=== PATIENT | male | born 1950 | race Caucasian/White ===

== ENCOUNTER → 2016-09-30 | Outpatient (CLI) | payer BC, OTHER ==
[~2016-09-30] MED LIST: ASPCH81 PO; B-COCAP2 PO; LISI40TA PO; METO100T14 PO; MULT-618 PO; OMEP40CA PO; SIMV40TA2 PO
[2016-09-30 12:52] LABS: BASO % 0.4 %; BASO ABS # 0.02 K/uL (0-0.2); COMPLETE YES; EOS % 3.9 %; HEMATOCRIT 41.3 % (42-52); IG% 0.8 %; LYMPH % 24.8 %; LYMPH ABS # 1.32 K/uL (1.2-3.4); MEAN CELL VOLUME 94.7 fL (80-100); MEAN CORPUSCULAR HEMOGLOBIN 32.8 pg (25-34); MEAN CORPUSCULAR HGB CONC 34.6 g/dl (32-36); MEAN PLATELET VOLUME 9.7 fL (7.4-10.4); MONO % 11.5 %; NEUT % 58.6 %; PLATELET COUNT 184 K/uL (130-400); RED BLOOD COUNT 4.36 M/uL (4.7-6.1); WHITE BLOOD COUNT 5.32 K/uL (4.8-10.8)
[2016-09-30 13:11] LABS: BLOOD UREA NITROGEN 16 mg/dl (7-18); BUN/CREATININE RATIO 14.6 (10-20); CALCIUM 9.1 mg/dl (8.5-10.1); CARBON DIOXIDE 24 mmol/L (21-32); CHLORIDE 105 mmol/L (98-107); GLUCOSE 134 mg/dl (70-99); SODIUM 139 mmol/L (136-145)
== END | disposition home or self-care (01) ==
LOC: C.LABPBG 10:19
PROVIDERS: ATTEND Internal Medicine Geriatric Medicine
DX: I10 Essential (primary) hypertension (principal); E78.5 Hyperlipidemia, unspecified; I25.10 Atherosclerotic heart disease of native coronary artery without angina pectoris; D64.9 Anemia, unspecified

== ENCOUNTER → 2017-04-15 | Outpatient (CLI) | payer OTHER ==
[2017-04-15 12:18] LABS: BASO ABS # 0.05 K/uL (0-0.2); COMPLETE YES; EOS % 3.4 %; IG% 0.6 %; LYMPH % 20.6 %; LYMPH ABS # 1.03 K/uL (1.2-3.4); MEAN CELL VOLUME 96.1 fL (80-100); MEAN CORPUSCULAR HGB CONC 34.3 g/dl (32-36); MEAN PLATELET VOLUME 9.7 fL (7.4-10.4); NEUT % 58.4 %; PLATELET COUNT 176 K/uL (130-400); RED BLOOD COUNT 4.37 M/uL (4.7-6.1)
[2017-04-15 12:53] LABS: ESTIMATED AVERAGE GLUCOSE 105 mg/dl; HA1C FLAG Normal (Normal)
[2017-04-15 13:15] LABS: ALT/SGPT 47 U/L (12-78); AST/SGOT 46 U/L (15-37); BLOOD UREA NITROGEN 11 mg/dl (7-18); BUN/CREATININE RATIO 10.7 (10-20); CALCIUM 8.9 mg/dl (8.5-10.1); CARBON DIOXIDE 25 mmol/L (21-32); CHLORIDE 105 mmol/L (98-107); CREATININE 1.01 mg/dl (0.60-1.40); GLUCOSE 128 mg/dl (70-99); POTASSIUM 4.6 mmol/L (3.5-5.1); SODIUM 137 mmol/L (136-145)
[2017-04-15 13:26] LABS: ALB/GLOB RATIO 0.9 (0.9-2); ALKALINE PHOSPHATASE 91 U/L (45-117); CHOLESTEROL 168 mg/dl (0-200); CHOLESTEROL/HDL RATIO 2.4; HDL CHOLESTEROL 71 mg/dl; LDL CHOLESTEROL CALCULATED 73 mg/dl; TRIGLYCERIDES 122 mg/dl (0-150); VERY LOW DENSITY LIPOPROT CALC 24 mg/dl
--- NOTE | 2017-04-23 12:19 | CODING QUERY MEDICAL NECESSITY ---
SUPPORTING DIAGNOSIS NEEDED A supporting diagnosis is required for the test/procedure performed on this patient in order for us to be reimbursed by the patient's insurance. Please provide a supporting diagnosis for the following test/procedure listed below next to the test name along with your signature. *If there is no additional diagnosis for this patient that would support the following test/procedure please document that below next to the test/procedure. Test(s)/Procedure(s) that require a supporting diagnosis: * PSA DIAGNOSIS: Provider Signature: Date: Thank you Eva Gonzales [employer] Once completed, please kindly fax back to [phone] For questions please call [phone]
== END | disposition home or self-care (01) ==
LOC: C.LABPBG 09:02
PROVIDERS: ATTEND Internal Medicine Geriatric Medicine
DX: Z00.00 Encounter for general adult medical examination without abnormal findings (principal); I10 Essential (primary) hypertension; R73.9 Hyperglycemia, unspecified; E78.5 Hyperlipidemia, unspecified; K76.0 Fatty (change of) liver, not elsewhere classified; D64.9 Anemia, unspecified

== ENCOUNTER → 2017-05-26 | Outpatient (CLI) | payer OTHER ==
[2017-05-26 13:17] LABS: BLOOD UREA NITROGEN 12 mg/dl (7-18); BUN/CREATININE RATIO 12.9 (10-20); CALCIUM 8.9 mg/dl (8.5-10.1); CARBON DIOXIDE 28 mmol/L (21-32); CHLORIDE 100 mmol/L (98-107); CREATININE 0.96 mg/dl (0.60-1.40); GLUCOSE 115 mg/dl (70-99); POTASSIUM 4.1 mmol/L (3.5-5.1); SODIUM 133 mmol/L (136-145)
[2017-05-26 13:22] LABS: FREE PSA 0.76 ng/ml
== END | disposition home or self-care (01) ==
LOC: C.LABPBG 08:30
PROVIDERS: ATTEND Internal Medicine Geriatric Medicine
DX: R97.20 Elevated prostate specific antigen [PSA] (principal); I10 Essential (primary) hypertension

== ENCOUNTER → 2017-09-14 | Day surgery (SDC) | payer OTHER ==
[2017-08-31 08:31] VITALS: Ht 182.9 cm; Wt 86.4 kg
[~2017-09-14] VITALS: Ht 182.9 cm; Wt 86.4 kg
[~2017-09-14] MED LIST changes: +AMLO-110 PO; +ASCA500 PO; -ASPCH81 PO; +ASPI81TA28 PO; +ATOR-24 PO; +B-CO1TAB53 PO; -B-COCAP2 PO; +CYAN10005 PO; +EpHEDrine SULFATE 50MG/5ML SYR ONE; +LIDOCAINE HCL 2% 2 ML VIAL (20MG/ML) ONE; -OMEP40CA PO; +OMEP40CA41 PO; +PRED20TA PO; +PROPOFOL IV EMULSION 10 MG/ML 20 ML VIAL IV ONE; +PSYL48.59 PO; -SIMV40TA2 PO; +SODIUM CHLORIDE 0.9% 500ML 500 ML IV ONE
--- NOTE | 2017-09-14 11:40 | Endo History and Physical ---
History & Physical Date of Service: Sep 14, 2017. Chief Complaint: History of colon polyps Referring Physician: Dr. Mendez History of Present Illness 66 yo CM who presents for colonoscopy secondary to history of colon polyps. Past Medical History Reflux, High Cholesterol, CABG, Hypertension Past Surgical History Hx Cardiac Surgery: Yes (AORTIC VALVE REPLACEMENT) Hx Internal Defibrillator: No Hx Pacemaker: No Hx Abdominal Surgery: No Hx of Implantable Prosthesis: No Hx Post-Op Nausea and Vomiting: No Hx Cancer Surgery: No Hx Thoracic Surgery: No Hx Orthopedic: Yes (RT KNEE SURGERY) Hx Urinary Tract Surgery: No Family History None Social History Smoking Status: Never Smoker Hx Substance Use: No Hx Alcohol Use: Yes (A COUPLE BEERS/DAY) Allergies Coded Allergies: No Known Allergies (Unverified , 09/14/17) Current Medications Reported Home Medications Medications Dose Route/Sig Max Daily Dose Days Date Category Prednisone 20 Mg Tab 1 Tab PO DAILY 5 09/14/17 Reported Super B-Complex (B-Complex W/Biotin & Folic Aci) 1 Tab Tab 1 Tab PO DAILY 08/31/17 Reported Vitamin C (Ascorbic Acid) 500 Mg Tab 1 Tab PO DAILY 08/31/17 Reported Vitamin B-12 (Cyanocobalamin) 1,000 Mcg Tab 1,000 Mcg PO DAILY 08/31/17 Reported Metamucil (Psyllium) 48.57 % Pow 1 Dose PO DAILY 08/31/17 Reported Prilosec (Omeprazole) 40 Mg Cap 40 Mg PO QAM 08/31/17 Reported Lipitor (Atorvastatin Calcium) 40 Mg Tab 40 Mg PO QAM 08/31/17 Reported Aspirin Ec (Aspirin) 81 Mg Tab 81 Mg PO QAM 08/31/17 Reported Norvasc (Amlodipine Besylate) 5 Mg Tab 5 Mg PO QAM 08/31/17 Reported Centrum Silver Ultra Mens (Multiple Vitamins W/ Minerals) 1 Tab Tab 1 Tab PO QAM 06/29/14 Reported Lopressor (Metoprolol Tartrate) 100 Mg Tab 100 Mg PO BID 06/27/14 Reported Prinivil (Lisinopril) 40 Mg Tab 40 Mg PO QAM 06/27/14 Reported Vital Signs Weight (Kilograms): 86.36 Height (Feet): 6 Height (Inches): 0 Date Time Temp Pulse Resp B/P (MAP) Pulse Ox O2 Delivery O2 Flow Rate FiO2 09/14/17 11:10 36.7 95 16 116/69 (85) 96 Room Air Physical Exam General Appearance: WD/WN, no apparent distress Respiratory/Chest: Auscultation: breath sounds normal Cardiovascular: Heart Auscultation: RRR Abdomen: Bowel Sounds: normal Inspection & Palpation: soft, non-distended, no tenderness, guarding & rebound Assessment and Plan Assessment: 66 yo CM who presents for colonoscopy secondary to history of colon polyps. Plan: Proceed with colonoscopy.
--- NOTE | 2017-09-14 12:12 | Discharge Instructions ---
Endoscopy Patient Instructions Date / Procedure(s) Performed Sep 14, 2017. Colonoscopy Allergy Information Coded Allergies: No Known Allergies (Unverified , 09/14/17) Discharge Date / Findings Sep 14, 2017. Colon polyps Internal hemorrhoids Medication Instructions Stopped Medication(s): BABY ASPIRIN METAMUCIL OK to resume all medications today as prescribed Reported Home Medications Medications Dose Route/Sig Max Daily Dose Days Date Category Prednisone 20 Mg Tab 1 Tab PO DAILY 5 09/14/17 Reported Super B-Complex (B-Complex W/Biotin & Folic Aci) 1 Tab Tab 1 Tab PO DAILY 08/31/17 Reported Vitamin C (Ascorbic Acid) 500 Mg Tab 1 Tab PO DAILY 08/31/17 Reported Vitamin B-12 (Cyanocobalamin) 1,000 Mcg Tab 1,000 Mcg PO DAILY 08/31/17 Reported Metamucil (Psyllium) 48.57 % Pow 1 Dose PO DAILY 08/31/17 Reported Prilosec (Omeprazole) 40 Mg Cap 40 Mg PO QAM 08/31/17 Reported Lipitor (Atorvastatin Calcium) 40 Mg Tab 40 Mg PO QAM 08/31/17 Reported Aspirin Ec (Aspirin) 81 Mg Tab 81 Mg PO QAM 08/31/17 Reported Norvasc (Amlodipine Besylate) 5 Mg Tab 5 Mg PO QAM 08/31/17 Reported Centrum Silver Ultra Mens (Multiple Vitamins W/ Minerals) 1 Tab Tab 1 Tab PO QAM 06/29/14 Reported Lopressor (Metoprolol Tartrate) 100 Mg Tab 100 Mg PO BID 06/27/14 Reported Prinivil (Lisinopril) 40 Mg Tab 40 Mg PO QAM 06/27/14 Reported Provider Instructions Activity Restrictions - No exercising or heavy lifting for 24 hours. - Do not drink alcohol the day of the procedure. - Do not drive a car or operate machinery until the day after the procedure. - Do not make any important decisions or sign important papers in 24 hours after the procedure. Following Day: - Return to full activity which may include returning to work/school. Diet Start your diet with liquids and light foods (jello, soup, juice, toast). Then eat your usual diet if not nauseated. Treatment For Common After Affects For mild abdominal pain, bloating, or excessive gas: - Rest - Eat lightly - Lie on right side Follow-Up Information Follow-up with Dr. Mendez as scheduled Anesthesia Information What You Should Know You have had a procedure that required some medicine to reduce anxiety and discomfort. This treatment is called moderate sedation. After receiving the treatment, you may be sleepy, but you will be able to breathe on your own. The effects of the treatment may last for several hours. Follow these instructions along with Activity/Diet recommendations noted above: * Do NOT do anything where dizziness or clumsiness would be dangerous. * Rest quietly at home today, then you can be up and about tomorrow. * Have a responsible person stay with you the rest of today. * You may have had an I.V. today. If so, you may take the dressing off later today. Recommendations Call your doctor if: * Trouble breathing * Continuous vomiting for more than 24 hours * Temperature above 101 degrees * Severe abdominal pain or bloating * Pain not relieved by pain medicine ordered * There is increased drainage or redness from any incision * A large amount of rectal bleeding greater than 2-3 tablespoons. (If you had a polyp/s removed or have hemorrhoids, a small amount of blood - from the rectum is to be expected.) * You have any unanswered questions or concerns. IN THE EVENT OF A SERIOUS EMERGENCY, GO TO THE NEAREST EMERGENCY ROOM Your discharge instructions were prepared by provider Mike Goldman. Patient Instructions Signature Page Eusebio Montemayor Patient (or Guardian) Signature/Date: I have read and understand the instructions given to me by my caregivers. Caregiver/RN/Doctor Signature/Date: The above-named patient and/or guardian has received patient instructions on this date. + Original Patient Signature Page (only) stays with chart. Please make copy for patient.
--- NOTE | 2017-09-14 12:12 | GI REPORT ---
Procedure Date: 09/14/2017 11:13 AM Procedure: Colonoscopy Indications: High risk colon cancer surveillance: Personal history of colonic polyps Medicines: Monitored Anesthesia Care Complications: No immediate complications. Estimated Blood Loss: Estimated blood loss: none. Procedure: Pre-Anesthesia Assessment: - Prior to the procedure, a History and Physical was performed, and patient medications and allergies were reviewed. The patient's tolerance of previous anesthesia was also reviewed. The risks and benefits of the procedure and the sedation options and risks were discussed with the patient. All questions were answered, and informed consent was obtained. Prior Anticoagulants: The patient has taken aspirin, last dose was 1 day prior to procedure. ASA Grade Assessment: III - A patient with severe systemic disease. After reviewing the risks and benefits, the patient was deemed in satisfactory condition to undergo the procedure. After I obtained informed consent, the scope was passed under direct vision. Throughout the procedure, the patient's blood pressure, pulse, and oxygen saturations were monitored continuously. The Scope was introduced through the anus and advanced to the terminal ileum. The colonoscopy was performed without difficulty. The patient tolerated the procedure well. The quality of the bowel preparation was good. The terminal ileum, ileocecal valve, appendiceal orifice, and rectum were photographed. Findings: The perianal and digital rectal examinations were normal. Five sessile polyps were found in the sigmoid colon, transverse colon and cecum. The polyps were 4 to 8 mm in size. These polyps were removed with a hot snare. Resection and retrieval were complete. Non-bleeding internal hemorrhoids were found during retroflexion. The hemorrhoids were small. Impression: - Five 4 to 8 mm polyps in the sigmoid colon, in the transverse colon and in the cecum, removed with a hot snare. Resected and retrieved. - Non-bleeding internal hemorrhoids. Recommendation: - Resume previous diet. - Continue present medications. - Repeat colonoscopy for surveillance based on pathology results. - Return to primary care physician as previously scheduled. Mike Goldman, DO 09/14/2017 12:12:00 PM This report has been signed electronically. Note Initiated On: 09/14/2017 11:13 AM I attest to the content of the Intraoperative Record and orders documented therein, exceptions below
--- NOTE | 2017-09-14 12:20 | Anesthesiology Progress Note ---
Anesthesia Post Op Note Date & Time Sep 14, 2017 at 12:19 Vital Signs Pain Intensity: 5 Vital Signs Past 12 Hours Date Time Temp Pulse Resp B/P (MAP) Pulse Ox O2 Delivery O2 Flow Rate FiO2 09/14/17 11:10 36.7 95 16 116/69 (85) 96 Room Air Notes Mental Status: alert / awake / arousable, participated in evaluation Pt Amnestic to Procedure: Yes Nausea / Vomiting: adequately controlled Pain: adequately controlled Airway Patency, RR, SpO2: stable & adequate BP & HR: stable & adequate Hydration State: stable & adequate Anesthetic Complications: no major complications apparent
[2017-09-14 12:46] VITALS: BP 107/61; PULSE 62; O2SAT 96
== END | disposition home or self-care (01) ==
LOC: C.GI 10:08
PROVIDERS: ATTEND Internal Medicine
DX: Z12.11 Encounter for screening for malignant neoplasm of colon (principal); D12.3 Benign neoplasm of transverse colon; D12.5 Benign neoplasm of sigmoid colon; D12.0 Benign neoplasm of cecum; Z86.010 Personal history of colon polyps; K64.8 Other hemorrhoids; E78.5 Hyperlipidemia, unspecified; I25.10 Atherosclerotic heart disease of native coronary artery without angina pectoris; I10 Essential (primary) hypertension; K21.9 Gastro-esophageal reflux disease without esophagitis; E78.00 Pure hypercholesterolemia, unspecified; Z95.1 Presence of aortocoronary bypass graft; Z95.2 Presence of prosthetic heart valve; Z79.82 Long term (current) use of aspirin; Z79.52 Long term (current) use of systemic steroids

== ENCOUNTER → 2017-11-03 | Outpatient (CLI) | payer OTHER ==
[~2017-11-03] MED LIST changes: -EpHEDrine SULFATE 50MG/5ML SYR ONE; -LIDOCAINE HCL 2% 2 ML VIAL (20MG/ML) ONE; -PROPOFOL IV EMULSION 10 MG/ML 20 ML VIAL IV ONE; -SODIUM CHLORIDE 0.9% 500ML 500 ML IV ONE
[2017-11-03 14:38] LABS: ALBUMIN 3.8 gm/dl (3.4-5.0); ALT/SGPT 38 U/L (12-78); AST/SGOT 34 U/L (15-37); BLOOD UREA NITROGEN 12 mg/dl (7-18); CARBON DIOXIDE 24 mmol/L (21-32); CREATININE 0.99 mg/dl (0.60-1.40); GLUCOSE 120 mg/dl (70-99); POTASSIUM 4.3 mmol/L (3.5-5.1); SODIUM 137 mmol/L (136-145); TOTAL PROTEIN 7.5 gm/dl (6.4-8.2)
[2017-11-03 14:39] LABS: ALKALINE PHOSPHATASE 94 U/L (45-117); CHOLESTEROL 139 mg/dl (0-200); LDL CHOLESTEROL CALCULATED 50 mg/dl
== END | disposition home or self-care (01) ==
LOC: C.LABPBG 08:31
PROVIDERS: ATTEND Surgery
DX: I10 Essential (primary) hypertension (principal); K76.0 Fatty (change of) liver, not elsewhere classified; E78.5 Hyperlipidemia, unspecified

== ENCOUNTER 2024-05-02 05:57 | Inpatient (IN) ==
--- OUTSIDE RECORDS SUMMARY | 2024-05-02 06:02 | External Medical Summary | Continuity of Care Document ---
Author Name Unknown Organization [facility] [address] [place] [phone] Encounter [facility] FINNBR [id number] Date(s): 04/27/24 - 04/27/24 [facility] [place] [address] [facility] [place] [address], [facility] [address], [address] [place] [address] [phone] Encounter Diagnosis Posterior tibial tendon dysfunction, bilateral(Discharge Diagnosis) - 04/27/24 Arthralgia of left hindfoot(Discharge Diagnosis) - 04/27/24 Arthralgia of right hindfoot(Discharge Diagnosis) - 04/27/24 Callus of foot(Discharge Diagnosis) - 04/27/24 Discharge Disposition: Home or Self Care Attending Physician: MD Grove Sarah Allergies, Adverse Reactions, Alerts No Known Allergies Assessment and Plan Extracted from: Title:Orthopaedics Office Visit Note Author:Saran shah MD, Sarah Date:04/27/24 1.Foot pain, left 1.Foot pain, right 3.Posterior tibial tendon dysfunction, bilateral 4.Arthralgia of left hindfoot 5.Arthralgia of right hindfoot 6.Callus of foot Carmine a 73-year-old gentleman with 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 At this time he does have significant deformitybut he has minimal pain through his hindfoot. His main area of pain is over hiscalluson theleft side more so than the right. I explained to him today atthat since his orthoticspreviously gave him good reliefbefore he started to have issues with calluses I feel that it may be worth having new orthotics madeto see if these can offload that area.He is not interested in surgery at this timewhich I feelis reasonable as he is having minimal pain through his hindfoot with the exception of the callus. I did debride the callus with a 15 blade todayhere in the office. I provided him with an order for custom orthotics. I recommend taking [id number] medications and using topical treatment such as Voltaren or Bengay. I feel that the orthotics are medically necessary to offload and accommodate his deformity. He would like to see me back in 6 months to check his progress. If at that time he is not improvingwe can consider surgical intervention. All of his questions were answered. Medications amLODIPine 5 mg oral tablet Start: 04/27/24 9:20:00 AM EST Start Date: 04/27/24 Status: Ordered ammonium lactate 12% topical cream Start: 04/27/24 9:20:00 AM EST, 1 appl, topical, qAM Start Date: 04/27/24 Status: Ordered atorvastatin 80 mg oral tablet Start: 04/27/24 9:20:00 AM EST, 1 tab, PO, Daily Start Date: 04/27/24 Status: Ordered diclofenac 1% topical gel Start: 04/27/24 9:21:00 AM EST, 1 appl, topical, qid Start Date: 04/27/24 Status: Ordered ferrous sulfate 325 mg (65 mg elemental iron) oral tablet Start: 04/27/24 9:20:00 AM EST, 1 tab, PO, Daily Start Date: 04/27/24 Status: Ordered lisinopril 40 mg oral tablet Start: 04/27/24 9:20:00 AM EST, 1 tab, PO, Daily Start Date: 04/27/24 Status: Ordered Metoprolol Tartrate 50 mg oral tablet TAKE 1 TABLET BY MOUTH TWICE A DAY Start Date: 04/27/24 Status: Ordered omeprazole 40 mg oral delayed release capsule Start: 04/27/24 9:21:00 AM EST, 1 cap, PO, Daily Start Date: 04/27/24 Status: Ordered sildenafil 20 mg oral tablet Start: 04/27/24 9:21:00 AM EST, 1 tab, PO, tid Start Date: 04/27/24 Status: Ordered Mental Status 04/27/24 Barriers to Learning one year Other: Mandatory Health Literacy Documentation Yes Health Literacy Communication Barriers N ever Primary Language Greenlandic Problem List Condition Confirmation Course Effective Dates Status Health atus Informant Bilateral ankle pain Confirmed Active Diagnosis Diagnosis Type Effective Dates Health Status Clinical Service Informant Foot pain, right 04/27/24 Non-Specified Foot pain, left 04/27/24 Non-Specified Posterior tibial tendon dysfunction, bilateral Discharge Diagnosis 04/27/24 Arthralgia of left hindfoot Discharge Diagnosis 04/27/24 Callus of foot Discharge Diagnosis 04/27/24 Arthralgia of right hindfoot Discharge Diagnosis 04/27/24 Results Radiology Reports * Exam Date Time Procedure Performing Provider Status 04/27/24 10:02 AM XR Foot Complete 3+ Views Left Andres Mike; Final Notes: (XR Foot Complete 3+ Views Left) Reason For Exam: left foot XR Foot Complete 3+ Views Left EXAMINATION: XR Foot Complete 3+ Views Right, XR Foot Complete 3+ Views Left CLINICAL HISTORY: M79.671: Pain in right foot; M79.671: Pain in right foot; right foot COMPARISON: None FINDINGS: AP, oblique and lateral views of the right foot. Radiographs show moderate hallux valgus with lateralization of the hallux sesamoids, forefoot adduction with talonavicular uncoverage, collapse of thefoot arch with talar fault, moderate osteoarthritis at the calcaneocuboid joint and the first MTP joint, and mild degenerative changes in the midfoot. There is diffuse osseous demineralization. Thereis a healed fracture of the proximal phalanx neck of the right second toe. There is hammertoe deformity noted at the second through fifth toes. AP, oblique and lateral views of the left foot. Radiographs show moderate hallux valgus with lateralization of the hallux sesamoids, forefoot adduction with talonavicular uncoverage, collapse of the foot arch with talar fault and moderate osteoarthritis at the first MTP joint. There is diffuse osseous demineralization. There is hammertoe deformity noted at the second through fifth toes. IMPRESSION: 1. Moderate hallux valgus with lateralization of the hallux sesamoid and moderate osteoarthritis inthe first MTP joint, bilateral. 2. 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 3. Moderate osteoarthritis at the calcaneocuboid joint and mild degenerative changes in the midfoot, right. 4. Healed fracture in the proximal phalanx neck the right second toe. Workstation ID: [id number] Final Dictated by:MD Youssef Joong Mo Dictated DT/TM:04/27/2024 11:26 Signed by:MD Youssef Joong Mo Signed (Electronic Signature):04/27/2024 11:25 * Exam Date Time Procedure Performing Provider Status 04/27/24 10:02 AM XR Foot Complete 3+ Views Right RashidAndres; Final Notes: (XR Foot Complete 3+ Views Right) Reason For Exam: right foot XR Foot Complete 3+ Views Right EXAMINATION: XR Foot Complete 3+ Views Right, XR Foot Complete 3+ Views Left CLINICAL HISTORY: M79.671: Pain in right foot; M79.671: Pain in right foot; right foot COMPARISON: None FINDINGS: AP, oblique and lateral views of the right foot. Radiographs show moderate hallux valgus with lateralization of the hallux sesamoids, forefoot adduction with talonavicular uncoverage, collapse of thefoot arch with talar fault, moderate osteoarthritis at the calcaneocuboid joint and the first MTP joint, and mild degenerative changes in the midfoot. There is diffuse osseous demineralization. Thereis a healed fracture of the proximal phalanx neck of the right second toe. There is hammertoe deformity noted at the second through fifth toes. AP, oblique and lateral views of the left foot. Radiographs show moderate hallux valgus with lateralization of the hallux sesamoids, forefoot adduction with talonavicular uncoverage, collapse of the foot arch with talar fault and moderate osteoarthritis at the first MTP joint. There is diffuse osseous demineralization. There is hammertoe deformity noted at the second through fifth toes. IMPRESSION: 1. Moderate hallux valgus with lateralization of the hallux sesamoid and moderate osteoarthritis inthe first MTP joint, bilateral. 2. 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 3. Moderate osteoarthritis at the calcaneocuboid joint and mild degenerative changes in the midfoot, right. 4. Healed fracture in the proximal phalanx neck the right second toe. Workstation ID: [id number] Final Dictated by:MD Youssef Joong Mo Dictated DT/TM:04/27/2024 11:26 Signed by:MD Youssef Joong Mo Signed (Electronic Signature):04/27/2024 11:25 Social History Social History Type Response Smoking Status Never smoked cigaret minh Sex Male Sex Representation Male (finding) Ortho Outpt Note * MD Perfecto, Shey: PERFORM Event Display: Ortho Outpt Note Authored Date: Chief Complaint bilateral ankle History of Present Illness Gene presents for evaluation of bilateral feet.Left side is worse than right. He states that these became symptomatica couple years ago. He states that there was not an injury. He states he was seen by an outsidepodiatrist who prescribed him custom orthotics. He states these helpedwith his pain however he developed calluses in relation to theseafter about a year so he stopped using them. He states he recently saw a provider at [facility] who recommendedwhat sounds like a hindfoot fusion. He is not interested in surgical intervention and thereforeis requesting a second opinion. He states he previouslycompleted physical therapy and he felt this did help with his gaitand strength. He denies prior surgeryhe does not smoke. He denieshistory of blood clots orblood thinning medication. He is not diabetic. 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 He states outside providerdid try to order him a "custom boot" which sounds like an [employer] brace however his insurance denied this. Review of Systems All other review of systems completed and are negative except as described in the HPI above. Physical Exam General: alert and oriented x 3, no acute distress Psych: Normal mood and affect Skin: Normal without any rashes Pulmonary: unlabored respirations on room air CV: extremity pulses with regular rate, no pitting edema of the lower extremities Alignment: On standing exam,approximately 20 degrees of hindfoot valgus bilaterally. Hallux valgus deformity bilaterally. forefoot abduction bilaterally. Symmetriccollapsedarches bilaterally. Prominent callus overmedial longitudinal archand region of talar head bilaterally. unableto do tandem heel rise. Right Lower Extremity:Skin intact without erythema or wounds. 2+ dorsalis pedis pulse. Toes arewarm, and well-perfused. Sensation is intact to light touch in the DP, SP, sural, saphenous, and tibial nerve distributions. 5/5 strength in ankle dorsiflexion, plantarflexion,3/5 strength with inversion and eversion.Ankle range of motion is 5 degrees of dorsiflexion to 30 degrees of plantarflexionwithkneeflexed, dorsiflexion toneutral with thekneeextended.Subtalar range of motion 0degrees eversion, 5 degrees inversion. non TTP is sibfibularregion.Nontender palpation over posterior tibial tendon. Nontender palpation in sinus Tarsior calcaneocuboid joint. Prominent callus overplantar medial talar head. Tender palpation over this callus. Minimal motion appreciated through the hindfoot and that I am able to correct deformity howeverno pain withattempted motion through the hindfoot. No pain with motion through midfoot or forefoot. Able to correct hallux valgus deformity. Unable to actively invert past midline. Nontender palpation alongtibialis anterior, Achilles, peroneals, posterior tibial tendon. Left Lower Extremity:Skin intact without erythema or wounds. 2+ dorsalis pedis pulse. Toes are warm, and well-perfused. Sensation is intact to light touch in the DP, SP, sural, saphenous, and tibial nerve distributions. 5/5 strength in ankle dorsiflexion, plantarflexion,3/5 strength with inversion and eversion.Ankle range of motion is 5 degrees of dorsiflexion to 30 degrees of plantarflexionwithkneeflexed, dorsiflexion toneutral with thekneeextended.Subtalar range of motion 0degrees eversion, 5 degrees inversion. non TTP is sibfibularregion.Nontender palpation over posterior tibial tendon. Nontender palpation in sinus Tarsior calcaneocuboid joint. Prominent callus overplantar medial talar head. Tender palpation over this callus. Minimal motionappreciated through the hindfoot and that I am able to correct deformity howeverno pain withattempted motion through the hindfoot. No pain with motion through midfoot or forefoot. Able to correct hallux valgus deformity. Unable to actively invert past midline. Nontender palpation along tibialis anterior, Achilles, peroneals, posterior tibial tendon. Diagnostic Results Weightbearing views of bilateral feet were obtained and reviewed today. No limitations. No comparisons. These demonstrate no acute fractures or dislocations bilaterally. No evidence of osteomyelitis or infection. Hallux valgus deformity bilaterally. There is bilateral progressive collapsing foot deformity with plantarflexion of the talus and Meary's angle directed plantarly. Evidence of forefoot abduction bilaterally with talar head uncoverage. Degenerative changes appreciated at calcaneocuboid joint. 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 At this time he does have significant deformitybut he has minimal pain through hishindfoot. His main area of pain is over hiscalluson theleft side more so than the right. I explained to him today atthat since his orthoticspreviously gave him good reliefbefore he started to have issues with calluses I feel that it may be worth having new orthotics madeto see if these can offload that area.He is not interested in surgery at this timewhich I feelis reasonable as he is having minimal pain through his hindfoot with the exception of the callus. I did debride the callus with a 15 blade todayhere in the office. I provided him with an order for custom orthotics. I recommend taking [id number] medications and using topical treatment such as Voltaren or Bengay. I feel that the orthotics are medically necessary to offload and accommodate his deformity. He would like to see me back in 6 months to check his progress. If at that time he is not improvingwe can consider surgical intervention. All of his questions were answered. Problem List/Past Medical History Ongoing Bilateral ankle pain Medications amLODIPine(amLODIPine 5 mg oral tablet) ammonium lactate topical(ammonium lactate 12% topical cream), 1 appl, topical, qAM atorvastatin(atorvastatin 80 mg oral tablet), 80 mg= 1 tab, PO, Daily diclofenac topical(diclofenac 1% topical gel), 1 appl, topical, qid ferrous sulfate(ferrous sulfate 325 mg (65 mg elemental iron) oral tablet), 325 mg= 1 tab, PO, Daily lisinopril(lisinopril 40 mg oral tablet), 40 mg= 1 tab, PO, Daily metoprolol(Metoprolol Tartrate 50 mg oral tablet) omeprazole(omeprazole 40 mg oral delayed release capsule), 40 mg= 1 cap, PO, Daily sildenafil(sildenafil 20 mg oral tablet), 20 mg= 1 tab, PO, tid Allergies NKA Social History Smoking Status Never smoked cigarettes Recommendations Health Maintenance Pending(in the next year) OverDue Adult Influenza Vaccine due12/20/23and every 1year Due Medicare Annual Wellness Visit due04/27/24and every 1year Satisfied(in the past 1 year) There are no satisfied recommendations within the defined date range Electronic Signature on File Electronically Reviewed/Signed by: Shey Grove MD Author Signature Dt/Tm:04/27/2024 10:49 AM Division of Orthopaedics [place] Patient Care team information Care Team Related Persons Name: ARLEN GLASS
[2024-05-02 06:37] LABS: Basophils # (auto) 0.03 K/uL (0.00-0.20); Basophils % (auto) 0.8 %; Eosinophils # (auto) 0.03 K/uL (0.00-0.50); Eosinophils % (auto) 0.8 %; Hematocrit (blood only) 27.2 % (42.0-52.0); Hemoglobin 9.7 g/dl (14.0-18.0); Immature Granulocytes # (auto) 0.03 K/uL (0.01-0.20); Immature Granulocytes % (auto) 0.8 %; Lymphocytes # (auto) 0.61 K/uL (1.20-3.40); Lymphocytes % (auto) 16.9 %; Mean Corpuscular Hemoglobin 31.2 pg (25.0-34.0); Mean Corpuscular Hgb Conc 35.7 g/dL (32.0-36.0); Mean Corpuscular Volume 87.5 fL (80.0-100.0); Mean Platelet Volume 9.4 fL (9.4-12.4); Monocytes % (auto) 16.6 %; Neutrophils # (auto) 2.31 K/uL (1.40-6.50); Neutrophils % (auto) 64.1 %; Platelet Count 131 K/uL (130-400); RDW Coefficient of Variation 12.3 % (11.5-14.5); RDW Standard Deviation 39.7 fL (36.4-46.3); Red Blood Count 3.11 M/uL (4.70-6.10); White Blood Count 3.61 K/ul (4.8-10.8)
--- NOTE | 2024-05-02 07:20 | Emergency Department Note ---
Impression & Plan Acute CHF, Long QT syndrome, Hyponatremia, Edema, Acute and chronic respiratory failure with hypoxia ED Provider Note NAME: CHRISTIAN GLASS AGE: 73 SEX: M : 1950 ARRIVES VIA: Walk-In INFORMANT: Patient, ED PROVIDER(S): Shonda Ortega MD CHIEF COMPLAINT: Shortness of breath, wheezing HPI: This is a 73-year-old male presented for shortness of breath, wheezing. Patient notes that he began having symptoms that worsened last , 5 days ago. He notes that since then he has had some shortness of breath, wheezing in his chest. His bilateral lower extremities are swollen. Usually his left lower extremity swollen only. He also notes no smoking history. No fevers, chills, sore throat or congestion is noted. ROS: See above HPI for pertinent positives & negatives. A total of 10 systems reviewed and were otherwise negative. PAST MEDICAL HISTORY: See Below PAST SURGICAL HISTORY: See Below FAMILY HISTORY: See Below SOCIAL HISTORY: See Below HOME MEDICATIONS: See Below ALLERGIES: See Below VITALS: See Below PHYSICAL EXAMINATION: General: resting comfortably in no acute distress Head: Normocephalic and atraumatic Eyes: Normal inspection, extraocular muscles intact Ear, nose, throat: Normal external exam Neck: Normal range of motion Respiratory: Audible wheezes, diminished at the bases Cardiovascular: Regular rate/rhythm, no murmur GI: soft, nontender, no guarding or rebound Extremities: nontender, moves all extremities Neuro: The patient awake and alert, appropriately conversive, no focal deficits, symmetric faces Skin: Warm, dry, and intact MEDICAL DECISION MAKING: This is a 73-year-old male presenting for shortness of breath/wheezing. Consider CHF, PE, ACS, pneumonia, pleural effusion -Chest Xray independently interpreted by me showing no possible focal opacity/pleural effusion in the left lower lobe, no pneumothorax is noted -Anemia of 9.7 is noted otherwise slight leukopenia -There is noncritical value hyponatremia to 116 and hypokalemic 87. -BNP elevated at 1212. -With chest pain shortness of breath, will pursue CTA pulmonary embolism protocol to help elucidate underlying pathology versus PE. -CT reveals no PE, does show cardiomegaly with pulmonary edema/moderate bilateral pleural effusions with cirrhotic liver, splenomegaly. -With patient's current hyponatremia, elevated BNP, pulmonary edema/pleural effusion, patient required mission. He is currently hypoxic requiring nasal cannula. -Upper respiratory panel clear and negative -Discussed with Dr. Ruelas for admission. Differential diagnosis: CHF, PE, ACS, pneumonia, pleural effusion ER treatment provided: See below Independent History obtained from: Diagnostics interpreted by me: ECG: ECG independently interpreted by me with normal sinus rhythm, rate of 71, normal axis, normal NM, incomplete right branch block], mildly prolonged QT, no ST segment elevations consistent with STEMI criteria Cardiac Monitoring: An order was placed for continuous cardiac monitoring. The monitor shows a rate of 72 with sinus rhythm. Laboratory studies: As stated above and show below. Imaging studies: See below. Past Med/Surg History Problem List (Updated 05/02/24 @ 14:06 by Shonda Ortega MD) Liver cirrhosis, alcoholic Acute and chronic respiratory failure with hypoxia (Acute) Hypomagnesemia Acute CHF (Acute) Iron deficiency anemia Dyslipidemia (Chronic) Elevated PSA (Acute) Erectile dysfunction (Acute) Hyperglycemia Smokeless tobacco use (Chronic) Anemia (Chronic) Hyponatremia (Chronic) Edema (Acute) Encounter for pre-operative examination Toribio esophagus Dyspnea on exertion Low serum parathyroid hormone (PTH) Dysphagia HTN (hypertension) (Chronic) Hyperlipidemia (Chronic) CAD (coronary artery disease) (Chronic) Vitamin D deficiency (Chronic) Schatzki's ring (Chronic) Long QT syndrome (Chronic) Hepatic steatosis (Chronic) Gastroesophageal reflux disease (Chronic) Esophageal varices (Chronic) PT DENIES BANDING Benign prostatic hyperplasia with urinary obstruction (Chronic) Medical History Arthritis Hx of gout Surgical History H/O colonoscopy with polypectomy S/P CABG x 2 (2007) History of tooth extraction History of arthroscopy of right knee History of esophagogastroduodenoscopy (EGD) History of cardiac cath (~2007) Family History Sister Diabetes Brother Hypertension Stroke Diabetes Mother Breast cancer Father , 78 Coronary heart disease Other No family history of adverse response to anesthesia Denies family history of Ovarian cancer Prostate cancer Myocardial infarction Colorectal cancer Social History Smoking Status: Never smoker Second Hand Exposure: No; Do You Dip or Chew Tobacco: Yes (STILL USES "EVERY ONCE IN A WHILE, NOT DAILY">ADVISED); Hx Alcohol Use: Yes Alcohol type: beer Alcohol Intake Frequency: 4 or More x per/Week Alcohol Intake Frequency Comment: 3-4 beers/day Hx Substance Use: No Preferred Language: Chilean Communication Ability: Effective Visual Impairment: No Limitations Hearing Ability: Normal Supervisor Roving Required: No Beliefs That Will Affect Care: None marital status: Current Living Situation: Spouse current occupational status: retired How many Children do You have: 1 Other Information That Helps Us Care for You: No Feels Safe at Home: Yes Safety Concerns: Feels Safe At This Time Childhood Exposure to Second-Hand Smoke: No Diet: regular Diet Comment: regular caffeine: No during the past year weight has: remained stable Dental Care, Regularly: Yes Physical Activity Frequency: Daily Seatbelt Use: always Sunscreen Use: Yes Assistive Devices: None Allergies Allergies Allergy/AdvReac Type Severity Reaction Status Date / Time azithromycin AdvReac Intermediate QT Verified 11/23/23 10:03 Prolongation hydrochlorothiazide AdvReac Intermediate hyponatremi Verified 11/23/23 10:03 a Home Meds Home Medications Medication Instructions Recorded Confirmed aspirin 81 mg tablet,delayed 81 mg PO QAM 11/22/18 05/02/24 release multivitamin 1 tab PO QAM 02/28/19 05/02/24 ascorbic acid (vitamin C) 1,000 mg 1,000 mg PO QAM 12/05/19 05/02/24 tablet (Vitamin C) ferrous sulfate 325 mg (65 mg 325 mg PO DAILY 04/29/24 05/02/24 iron) tablet Previous Rx's Medication Instructions Recorded indomethacin 50 mg capsule 50 mg PO TID PRN Gout #30 caps 05/13/21 fluocinonide 0.05 % topical cream 1 applic topical BID PRN Rash #60 09/02/22 grams compr.stocking,knee,long,large #12 ea 05/21/23 atorvastatin 80 mg tablet 80 mg PO QAM #90 tabs 06/16/23 sildenafil (pulm.hypertension) 20 100 mg (5 x 20 mg) PO ONCE PRN 11/23/23 mg tablet sexual activity #30 tabs amlodipine 5 mg tablet 5 mg PO HS #90 tabs 12/03/23 metoprolol tartrate 50 mg tablet 50 mg PO BID #180 tabs 02/04/24 omeprazole 40 mg capsule,delayed 40 mg PO QAM #90 caps 02/04/24 release ammonium lactate 12 % topical cream 1 applic topical DAILY PRN dry 04/15/24 skin #385 grams lisinopril 40 mg tablet 40 mg PO QAM #90 tabs 04/15/24 tadalafil 5 mg tablet 20 mg (4 x 5 mg) PO ONCE PRN 04/29/24 sexual activity #30 tabs Results & Data (ED) Vital Signs Vital Signs - 24 hr 05/02/24 06:02 05/02/24 06:10 05/02/24 06:15 Temperature 36.4 C L Temperature Source Oral Pulse Rate 71 Pulse Rate [Apical] Pulse Rate from SpO2 Sensor Pulse Rhythm Regular Pulse Strength Normal Respiratory Rate 20 Respiratory Effort / Characteristics Non-Labored Spontaneous Respiratory Depth Normal Respiratory Pattern Regular Blood Pressure 151/76 H Blood Pressure [Right Arm] Blood Pressure Mean 101 Blood Pressure Mean [Right Arm] Blood Pressure Position Sitting Pulse Oximetry 93 86 L 95 Oxygen Delivery Method Room Air Room Air Nasal Cannula Oxygen Flow Rate 0 4 Sepsis Recent Fever Within 48 Hours No Sepsis New/Unexplained Change in Mental Status No Sepsis Action Taken by Nursing No Action Required Oxygen Flow Rate - Titration 4 Pulse Oximetry Post Tiitration 94 05/02/24 06:16 05/02/24 06:21 05/02/24 06:21 Temperature Temperature Source Pulse Rate 59 L 59 L Pulse Rate [Apical] 61 Pulse Rate from SpO2 Sensor 59 L Pulse Rhythm Pulse Strength Respiratory Rate 18 14 Respiratory Effort / Characteristics Respiratory Depth Respiratory Pattern Blood Pressure Blood Pressure [Right Arm] 165/76 H Blood Pressure Mean Blood Pressure Mean [Right Arm] 105 Blood Pressure Position Pulse Oximetry 95 95 Oxygen Delivery Method Nasal Cannula Oxygen Flow Rate 4 Sepsis Recent Fever Within 48 Hours Sepsis New/Unexplained Change in Mental Status Sepsis Action Taken by Nursing Oxygen Flow Rate - Titration Pulse Oximetry Post Tiitration 05/02/24 06:36 05/02/24 07:12 05/02/24 07:42 Temperature Temperature Source Pulse Rate 57 L 53 L 48 L Pulse Rate [Apical] Pulse Rate from SpO2 Sensor 57 L 53 L 49 L Pulse Rhythm Pulse Strength Respiratory Rate 13 13 16 Respiratory Effort / Characteristics Respiratory Depth Respiratory Pattern Blood Pressure Blood Pressure [Right Arm] Blood Pressure Mean Blood Pressure Mean [Right Arm] Blood Pressure Position Pulse Oximetry 90 95 94 Oxygen Delivery Method Oxygen Flow Rate Sepsis Recent Fever Within 48 Hours Sepsis New/Unexplained Change in Mental Status Sepsis Action Taken by Nursing Oxygen Flow Rate - Titration Pulse Oximetry Post Tiitration 05/02/24 08:12 05/02/24 08:47 05/02/24 08:51 Temperature Temperature Source Pulse Rate 69 71 Pulse Rate [Apical] 71 Pulse Rate from SpO2 Sensor 70 70 Pulse Rhythm Pulse Strength Respiratory Rate 19 26 H 16 Respiratory Effort / Characteristics Short of Breath Respiratory Depth Shallow Respiratory Pattern Blood Pressure Blood Pressure [Right Arm] 163/90 H Blood Pressure Mean Blood Pressure Mean [Right Arm] 114 Blood Pressure Position Pulse Oximetry 92 95 96 Oxygen Delivery Method Nasal Cannula Nasal Cannula Oxygen Flow Rate 3 4 Sepsis Recent Fever Within 48 Hours Sepsis New/Unexplained Change in Mental Status Sepsis Action Taken by Nursing Oxygen Flow Rate - Titration Pulse Oximetry Post Tiitration Laboratory Data 05/02/24 06:15 05/02/24 12:38 Lab Results 05/02/24 Range/Units 06:15 WBC 3.61 L (4.8-10.8) K/ul RBC 3.11 L (4.70-6.10) M/uL Hgb 9.7 L (14.0-18.0) g/dl Hct 27.2 L (42.0-52.0) % MCV 87.5 (80.0-100.0) fL MCH 31.2 (25.0-34.0) pg MCHC 35.7 (32.0-36.0) g/dL RDW Std Deviation 39.7 (36.4-46.3) fL RDW Coeff of Luisa 12.3 (11.5-14.5) % Plt Count 131 (130-400) K/uL MPV 9.4 (9.4-12.4) fL Immature Gran % (Auto) 0.8 % Neut % (Auto) 64.1 % Lymph % (Auto) 16.9 % [place] % (Auto) 16.6 % Eos % (Auto) 0.8 % Baso % (Auto) 0.8 % Neut # (Auto) 2.31 (1.40-6.50) K/uL Lymph # (Auto) 0.61 L (1.20-3.40) K/uL [place] # (Auto) 0.60 H (0.11-0.59) K/uL Eos # (Auto) 0.03 (0.00-0.50) K/uL Baso # (Auto) 0.03 (0.00-0.20) K/uL Immature Gran # (Auto) 0.03 (0.01-0.20) K/uL Sodium 116 L* (136-145) mmol/L Potassium 4.3 (3.5-5.1) mmol/L Chloride 87 L (98-107) mmol/L Carbon Dioxide 22 (21-32) mmol/L Anion Gap 7 (3-11) BUN 14 (6-23) mg/dl Creatinine 0.62 (0.6-1.4) mg/dl Est Cr Clr Drug Dosing 135.4 ml/min eGFR 100.92 BUN/Creatinine Ratio 22.6 H (10-20) Glucose 116 H (70-99(Fasting)) mg/dl Calcium 8.9 (8.6-10.3) mg/dl Magnesium 1.6 L (1.7-2.4) mg/dl Total Bilirubin 1.6 H (0.2-1.0) mg/dl AST 35 (13-39) U/L ALT 18 (7-52) U/L Alkaline Phosphatase 99 (34-104) U/L Troponin I High Sens 12.7 (0-20) pg/ml B-Natriuretic Peptide 1212 H (0-100) pg/ml Total Protein 6.7 (6.0-8.3) gm/dl Albumin 4.1 (3.4-5.0) gm/dl Globulin 2.6 (2.5-4.0) gm/dl Albumin/Globulin Ratio 1.6 (0.9-2) TSH 1.003 (0.300-4.500) uIu/ml Adenovirus (PCR) Not Detected (NotDetected) B. pertussis DNA (PCR) Not Detected (NotDetected) B.parapertussis DNA PCR Not Detected (NotDetected) C. pneumoniae DNA (PCR) Not Detected (NotDetected) Coronavirus OC43 (PCR) Not Detected (NotDetected) Coronavirus HKU1 (PCR) Not Detected (NotDetected) Coronavirus 229E (PCR) Not Detected (NotDetected) SARS-CoV-2 (PCR) Not Detected (NotDetected) Coronavirus NL63 (PCR) Not Detected (NotDetected) Human Metapneumovir PCR Not Detected (NotDetected) Influenza Type A (PCR) Not Detected (NotDetected) Influenza Type B (PCR) Not Detected (NotDetected) M. pneumoniae (PCR) Not Detected (NotDetected) Parainfluenza 1 (PCR) Not Detected (NotDetected) Parainfluenza 2 (PCR) Not Detected (NotDetected) Parainfluenza 3 (PCR) Not Detected (NotDetected) Parainfluenza 4 (PCR) Not Detected (NotDetected) RSV (PCR) Not Detected (NotDetected) Entero/Rhino (PCR) Not Detected (NotDetected) Administered Medications Albuterol (Albut/Ipratrop 3mg/0.5mg Neb 3 Ml Vial) 3 ml NEB QIDR [facility]; Protocol Stop: 06/01/24 10:59 Last Admin: 05/02/24 11:01 Dose: Not Given Documented By: CAROLINE Aspirin (Aspirin 81 Mg Ectab) 81 mg PO [facility] Stop: 06/01/24 11:14 Last Admin: 05/02/24 12:17 Dose: 81 mg Documented By: PK Folic Acid (Folic Acid 1 Mg Tab) 1 mg PO [facility] Stop: 06/01/24 11:59 Last Admin: 05/02/24 12:21 Dose: 1 mg Documented By: PK Lisinopril (Lisinopril 40 Mg Tab) 40 mg PO [facility] Stop: 06/01/24 11:14 Last Admin: 05/02/24 12:16 Dose: 40 mg Documented By: PK Multivitamins (Multivitamin Tab) 1 tab PO [facility] Stop: 06/01/24 11:59 Last Admin: 05/02/24 12:21 Dose: 1 tab Documented By: PK Pantoprazole Sodium (Pantoprazole 40 Mg Tab) 40 mg PO DAILY [facility] Stop: 06/01/24 11:14 Last Admin: 05/02/24 12:17 Dose: 40 mg Documented By: PK Thiamine HCl (Thiamine Hcl 100 Mg Tab) 200 mg PO BID [facility] Stop: 06/01/24 11:59 Last Admin: 05/02/24 12:21 Dose: 200 mg Documented By: PK Discontinued Medications Albuterol (Albut/Ipratrop 3mg/0.5mg Neb 3 Ml Vial) 3 ml NEB NOW STA; Protocol Stop: 05/02/24 09:47 Last Admin: 05/02/24 09:53 Dose: 3 ml Documented By: HS Albuterol (Albut/Ipratrop 3mg/0.5mg Neb 3 Ml Vial) Confirm Administered Dose 3 ml .ROUTE .STK-MED ONE Stop: 05/02/24 09:50 Last Admin: 05/02/24 09:53 Dose: Not Given Documented By: HS Furosemide (Furosemide 40 Mg/4 Ml Vial) 40 mg IV ONE ONE Stop: 05/02/24 08:24 Last Admin: 05/02/24 08:42 Dose: 40 mg Documented By: HS Magnesium Sulfate/Dextrose (Magnesium Sulfate / D5w) 1 gm in 100 mls @ 50 mls/hr IV ONE ONE Stop: 05/02/24 11:00 Last Infusion: 05/02/24 11:28 Dose: Infused Documented By: Admin: 05/02/24 09:19 Dose: 50 mls/hr Documented By: HS Ioversol (Optiray 320 125ml) 120 ml IV ONCE ONE Stop: 05/02/24 08:06 Last Admin: 05/02/24 08:05 Dose: 120 ml Documented By: AW Metoprolol Succinate (Metoprolol Succ 50mg Ext Rel Tab) 50 mg PO NOW STA Stop: 05/02/24 09:07 Last Admin: 05/02/24 10:13 Dose: 50 mg Documented By: HS Imaging Data Radiologist's Impression: Chest X-Ray 05/02/24 06:07 EXAM: XR chest 1V portable CLINICAL HISTORY: DYSPNEA SDM INPATIENT TECHNIQUE: X-ray examination of the chest AP portable view. COMPARISON: 05/26/2022 FINDINGS: Faint opacification of the left lower zone with of the lung and to lesser extent right lower zone could be pulmonary infiltrate obscuring the left costophrenic angle. Cardiac size is enlarged. Prominent bilateral hilar vascular markings. Evidence of sternotomy sutures seen. The right lung is clear. No pneumothorax. Intact bony thorax. IMPRESSION: 1. Cardiomegaly with prominent right hilar vascular markings could be due to pulmonary edema. 2. Faint opacification bilateral more left lower lung zone obscuring the left costophrenic angle could be pulmonary edema rather than infection with mild effusion. 3. New interval findings compared to the prior study. Electronically signed by Twyla Mustafa 05-02-2024 07:25 AM Chest CTA 05/02/24 07:18 CT ANGIOGRAPHY OF THE CHEST, PULMONARY EMBOLUS PROTOCOL CLINICAL HISTORY: Shortness of breath and chest pain. Evaluate for pulmonary embolus. COMPARISON STUDY: Chest CT May 02, 2009. Chest radiograph performed earlier today. TECHNIQUE: Following IV administration of 120 mL of Optiray, helical axial images of the chest were obtained utilizing the pulmonary embolus protocol. Maximal intensity projections and sagittal and coronal reformats were viewed on an independent 3D workstation. IV contrast was administered without complication. Automated exposure control was utilized for the study. A dose lowering technique was utilized adhering to the principles of ALARA. CT DOSE: 1015.95 mGy.cm FINDINGS: No pulmonary emboli are identified. There are median sternotomy wires and postoperative findings from bypass grafting. The heart is moderately enlarged. There is no pericardial effusion. Extensive coronary artery calcification is present. Several mildly enlarged mediastinal lymph nodes are present. A prevascular node on image 213 of 257 measures 1.8 x 1.1 cm. There are moderate bilateral pleural effusions. Subpleural opacities favor atelectasis. No consolidation is identified to suggest pneumonia. Central airways are patent. There are suspected mild pulmonary edema. There is no pneumothorax. Body wall edema is present. Visualized portions of the upper abdomen demonstrate cirrhotic liver with a small amount of perihepatic ascites. The spleen is mildly enlarged. There are upper abdominal collaterals. IMPRESSION: 1. No pulmonary emboli identified. 2. Cardiomegaly with mild interstitial pulmonary edema and moderate bilateral pleural effusions. 3. Bilateral lower lobe and lingular opacities favor atelectasis. 4. Cirrhotic liver. Splenomegaly, trace perihepatic ascites and upper abdominal collaterals indicate portal hypertension. 5. Mildly enlarged mediastinal lymph nodes which are nonspecific but likely benign. A follow-up chest CT in 6 months is recommended. ACT 112: Negative or not required by law. Electronically signed by: Douglas Nair M.D. 05/02/2024 8:33 AM Discharge Plan Visit Data Chief Complaint: Respiratory Problems Stated Complaint: TROUBLE BREATHING,WHEEZING,RAPID HEART RATE ED Provider: Shonda Ortega Discharge Problem: Acute CHF, Long QT syndrome, Hyponatremia, Edema, Acute and chronic respiratory failure with hypoxia Patient Disposition: Admitted As Inpatient Discharge Instructions Interventions: ED Discharge Assessment Last Done: 05/02/24 09:39
--- NOTE | 2024-05-02 07:25 | XRay Report ---
EXAM: XR chest 1V portable CLINICAL HISTORY: DYSPNEA SDM INPATIENT TECHNIQUE: X-ray examination of the chest AP portable view. COMPARISON: 05/26/2022 FINDINGS: Faint opacification of the left lower zone with of the lung and to lesser extent right lower zone could be pulmonary infiltrate obscuring the left costophrenic angle. Cardiac size is enlarged. Prominent bilateral hilar vascular markings. Evidence of sternotomy sutures seen. The right lung is clear. No pneumothorax. Intact bony thorax. IMPRESSION: 1. Cardiomegaly with prominent right hilar vascular markings could be due to pulmonary edema. 2. Faint opacification bilateral more left lower lung zone obscuring the left costophrenic angle could be pulmonary edema rather than infection with mild effusion. 3. New interval findings compared to the prior study. Electronically signed by Twyla Mustafa 05-02-2024 07:25 AM
[2024-05-02 07:28] LABS: Albumin Globulin Ratio 1.6 (0.9-2); Albumin Level 4.1 gm/dl (3.4-5.0); BUN Creatinine Ratio 22.6 (10-20); Bilirubin,Total 1.6 mg/dl (0.2-1.0); Calcium 8.9 mg/dl (8.6-10.3); Creatinine Clr Calc Pharmacy 135.4 ml/min; Globulin 2.6 gm/dl (2.5-4.0); Magnesium 1.6 mg/dl (1.7-2.4); Potassium 4.3 mmol/L (3.5-5.1); Total Protein 6.7 gm/dl (6.0-8.3); Troponin I High Sensitivity 12.7 pg/ml (0-20)
[2024-05-02 07:59] LABS: Adenovirus PCR Not Detected (NotDetected); Bordetella parapertussis PCR Not Detected (NotDetected); Bordetella pertussis PCR Not Detected (NotDetected); Chlamydia pneumoniae PCR Not Detected (NotDetected); Coronavirus 229E PCR Not Detected (NotDetected); Coronavirus CoV-2 (COVID19)PCR Not Detected (NotDetected); Coronavirus HKU1 PCR Not Detected (NotDetected); Coronavirus NL63 PCR Not Detected (NotDetected); Coronavirus OC43PCR Not Detected (NotDetected); Human Metapneumovirus PCR Not Detected (NotDetected); Influenza A PCR Not Detected (NotDetected); Influenza B PCR Not Detected (NotDetected); Mycoplasma pneumoniae PCR Not Detected (NotDetected); Parainfluenza Virus 1 PCR Not Detected (NotDetected); Parainfluenza Virus 2 PCR Not Detected (NotDetected); Parainfluenza Virus 3 PCR Not Detected (NotDetected); Parainfluenza Virus 4 PCR Not Detected (NotDetected); Respiratory Syncytial VirusPCR Not Detected (NotDetected); Rhinovirus/Enterovirus PCR Not Detected (NotDetected)
[2024-05-02] MEDS: OPTIRAY 320 125ml IV ONE (08:05)
--- NOTE | 2024-05-02 08:35 | CT Scan Report ---
CT ANGIOGRAPHY OF THE CHEST, PULMONARY EMBOLUS PROTOCOL CLINICAL HISTORY: Shortness of breath and chest pain. Evaluate for pulmonary embolus. COMPARISON STUDY: Chest CT May 02, 2009. Chest radiograph performed earlier today. TECHNIQUE: Following IV administration of 120 mL of Optiray, helical axial images of the chest were o btained utilizing the pulmonary embolus protocol. Maximal intensity projections and sagittal and cor onal reformats were viewed on an independent 3D workstation. IV contrast was administered without co mplication. Automated exposure control was utilized for the study. A dose lowering technique was ut ilized adhering to the principles of ALARA. CT DOSE: 1015.95 mGy.cm FINDINGS: No pulmonary emboli are identified. There are median sternotomy wires and postoperative fi ndings from bypass grafting. The heart is moderately enlarged. There is no pericardial effusion. Exte nsive coronary artery calcification is present. Several mildly enlarged mediastinal lymph nodes are p resent. A prevascular node on image 213 of 257 measures 1.8 x 1.1 cm. There are moderate bilateral pl eural effusions. Subpleural opacities favor atelectasis. No consolidation is identified to suggest pn eumonia. Central airways are patent. There are suspected mild pulmonary edema. There is no pneumothor ax. Body wall edema is present. Visualized portions of the upper abdomen demonstrate cirrhotic liver with a small amount of perihepatic ascites. The spleen is mildly enlarged. There are upper abdominal collaterals. IMPRESSION: 1. No pulmonary emboli identified. 2. Cardiomegaly with mild interstitial pulmonary edema and moderate bilateral pleural effusions. 3. Bilateral lower lobe and lingular opacities favor atelectasis. 4. Cirrhotic liver. Splenomegaly, trace perihepatic ascites and upper abdominal collaterals indicate portal hypertension. 5. Mildly enlarged mediastinal lymph nodes which are nonspecific but likely benign. A follow-up chest CT in 6 months is recommended. ACT 112: Negative or not required by law. Electronically signed by: Douglas Nair M.D. 05/02/2024 8:33 AM
[2024-05-02] MEDS: FUROSEMIDE 40 MG/4 ML VIAL IV ONE (08:42)
[2024-05-02 09:05] LABS: Thyroid Stimulating Hormone 1.003 uIu/ml (0.300-4.500)
[2024-05-02] MEDS: MAGNESIUM SULFATE / D5W 1 GM/100 ML BAG IV ONE (09:19)
--- NOTE | 2024-05-02 09:41 | History & Physical Report ---
Date of Service May 02, 2024 Assessment & Plan (1) Acute CHF: Plan: 73 yo M presets with ANDREWS, b/l LE edema, with markedly elevated BNP and radiologic evidence of CHF - Full admit to PCU - Cardiac diet with 2L fluid restriction - Activity OOB w/ assist - Initiate IV diuresis with Lasix 40mg BID - Medically optimize by changing Lopressor to Toprol XL 50mg, dose now - TTE ordered - Serial HS trop, f/u scheduled for 1200 - Resume Lisinopril 40mg daily - Daily standing weights and I/O q shift - Will need referral to HF clinic as outpatient upon d/c (2) Acute and chronic respiratory failure with hypoxia: Plan: Secondary to acute CHF with moderate bilateral pleural effusions - Continue supplemental O2, titrate to maintain sat >92% - Add Duonebs x1 now and QIDR and q2 prn dyspnea/wheezing (3) Hyponatremia: Plan: Acute on chronic - Added TSH and urine/serum osmol, and random urine Na - TSH WNL - Mixed picture as presently urine osmol >100 mosm/kg (367) and urine Na 55 - However, pt also with daily beer consumption and grossly volume overloaded - Suspect combination of hypervolemia, beer potomania, and possibly SIADH - Diurese as above, repeat BMP to reassess Na level at 1300 - Repeat in AM - PCU floor (4) Hypomagnesemia: Plan: Acute - Mag level 1.6 - Replacement ordered with repeat mag level in AM (5) Liver cirrhosis, alcoholic: Plan: Uncertain chronicity, but suspect chronic given number of years of ETOH consumption - Evidence of cirrhosis on CTA chest with some acites, defer RUQ ultrasound - Lengthy discussion with patient and regarding importance of etoh cessation - Mildly elevated TB of 1.6, remaining LFTs WNL, platelets WNL - Defer AWSS for now (6) Pancytopenia: Plan Chronic stable medical problems: - HTN - Continue Lisinopril and change Lopressor to Toprol as above, hold Amlodipine - HLD - Resume Lipitor - Toribio's esophagus - Change omeprazole to pantoprazole per hospital formulary - Anemia - slightly worse than baseline likely due to hypervolemia, diurese, f/u CBC in AM. Continue FeSO4 Lovenox added for DVT ppx. Follow platelets given underlying cirrhosis. AM labs have been ordered as well as PT/OT eval. Above plan of care has been d/w Dr. Hughes who is in agreement with aforementioned, and will also see and evaluate this patient. Further orders will be implemented as warranted by attending. History of Present Illness Chief Complaint: Dyspnea Primary Care Provider: REJI Kolb Eusebio is a 73 yo M with a pmhx of CAD s/p 3-vessel CABG, HTN, HLD, Toribio's esophagus and ETOH use who presents to the ER c/o ANDREWS progressively worsening since . He notes that he began experiencing increased dyspnea, primarily with exertion and noted that he was unable to walk the usual distance without having to stop and rest due to his shortness of breath. He also has increased lower extremity edema, bilaterally, with the left worse than the right. He has a h/o CABG in 2008 and had vein harvesting from his left leg. He follows with Dr. Malik. He has no prior h/o CHF or VT. He denies chest pain, palpitations, cough, congestion, fever or chills. He does endorse EOTH use, his notes that he has been consuming ETOH on a regular basis for "too many years to count." He drink 4 beers per day, but not all at once, usually over the space of an afternoon. He denies use of hard liquor. Does not drink much water, maybe a little before bed. He has also been consuming more added salt in his diet than usual. He denies orthopnea or PND. He presented to the ER where he was noted to be hypertensive, tachypneic and hypoxic with a sat of 86% on room air. He denies tobacco use. His w/u was significant for a sodium of 116 (prior Na from Mar 2024 was 133), a markedly elevated BNP of 1212, negative HS trop and EKG nonacute, with radiographic evidence of CHF with moderate bilateral pleural effusions, cardiomegaly and PVC. He was ordered a dose if IV Lasix 40mg x1 and referred for admission to the hospital medicine service. Allergies Allergy/AdvReac Type Severity Reaction Status Date / Time azithromycin AdvReac Intermediate QT Verified 11/23/23 10:03 Prolongation hydrochlorothiazide AdvReac Intermediate hyponatremi Verified 11/23/23 10:03 a Home Medications Medication Instructions Recorded Confirmed Type aspirin 81 mg tablet,delayed 81 mg PO QAM 11/22/18 05/02/24 History release multivitamin 1 tab PO QAM 02/28/19 05/02/24 History ascorbic acid (vitamin C) 1,000 mg 1,000 mg PO QAM 12/05/19 05/02/24 History tablet (Vitamin C) indomethacin 50 mg capsule 50 mg PO TID PRN Gout #30 caps 05/13/21 05/02/24 Rx fluocinonide 0.05 % topical cream 1 applic topical BID PRN Rash #60 09/02/22 05/02/24 Rx grams compr.stocking,knee,long,large #12 ea 05/21/23 04/29/24 Rx atorvastatin 80 mg tablet 80 mg PO QAM #90 tabs 06/16/23 05/02/24 Rx sildenafil (pulm.hypertension) 20 100 mg (5 x 20 mg) PO ONCE PRN 11/23/23 05/02/24 Rx mg tablet sexual activity #30 tabs amlodipine 5 mg tablet 5 mg PO HS #90 tabs 12/03/23 05/02/24 Rx metoprolol tartrate 50 mg tablet 50 mg PO BID #180 tabs 02/04/24 05/02/24 Rx omeprazole 40 mg capsule,delayed 40 mg PO QAM #90 caps 02/04/24 05/02/24 Rx release ammonium lactate 12 % topical cream 1 applic topical DAILY PRN dry 04/15/24 05/02/24 Rx skin #385 grams lisinopril 40 mg tablet 40 mg PO QAM #90 tabs 04/15/24 05/02/24 Rx ferrous sulfate 325 mg (65 mg 325 mg PO DAILY 04/29/24 05/02/24 History iron) tablet tadalafil 5 mg tablet 20 mg (4 x 5 mg) PO ONCE PRN 04/29/24 05/02/24 Rx sexual activity #30 tabs Past Med/Surg History Problem List (Updated 05/03/24 @ 12:00 by Julian Hughes MD) Pancytopenia Liver cirrhosis, alcoholic Acute and chronic respiratory failure with hypoxia (Acute) Hypomagnesemia Acute CHF (Acute) Iron deficiency anemia Dyslipidemia (Chronic) Elevated PSA (Acute) Erectile dysfunction (Acute) Hyperglycemia Smokeless tobacco use (Chronic) Anemia (Chronic) Hyponatremia (Chronic) Edema (Acute) Encounter for pre-operative examination Toribio esophagus Dyspnea on exertion Low serum parathyroid hormone (PTH) Dysphagia HTN (hypertension) (Chronic) Hyperlipidemia (Chronic) CAD (coronary artery disease) (Chronic) Vitamin D deficiency (Chronic) Schatzki's ring (Chronic) Long QT syndrome (Chronic) Hepatic steatosis (Chronic) Gastroesophageal reflux disease (Chronic) Esophageal varices (Chronic) PT DENIES BANDING Benign prostatic hyperplasia with urinary obstruction (Chronic) Medical History Arthritis Hx of gout Surgical History H/O colonoscopy with polypectomy S/P CABG x 2 (2007) History of tooth extraction History of arthroscopy of right knee History of esophagogastroduodenoscopy (EGD) History of cardiac cath (~2007) Family History Sister Diabetes Brother Hypertension Stroke Diabetes Mother Breast cancer Father , 78 Coronary heart disease Other No family history of adverse response to anesthesia Denies family history of Ovarian cancer Prostate cancer Myocardial infarction Colorectal cancer Social History Smoking Status: Never smoker Second Hand Exposure: No; Do You Dip or Chew Tobacco: Yes (STILL USES "EVERY ONCE IN A WHILE, NOT DAILY">ADVISED); Hx Alcohol Use: Yes Alcohol type: beer Alcohol Intake Frequency: 4 or More x per/Week Alcohol Intake Frequency Comment: 3-4 beers/day Hx Substance Use: No Preferred Language: [place] Leonean Communication Ability: Effective Visual Impairment: No Limitations Hearing Ability: Normal Rubber Goods Inspector Tester Required: No Beliefs That Will Affect Care: None marital status: Current Living Situation: Spouse current occupational status: retired How many Children do You have: 1 Other Information That Helps Us Care for You: No Feels Safe at Home: Yes Safety Concerns: Feels Safe At This Time Childhood Exposure to Second-Hand Smoke: No Diet: regular Diet Comment: regular caffeine: No during the past year weight has: remained stable Dental Care, Regularly: Yes Physical Activity Frequency: Daily Seatbelt Use: always Sunscreen Use: Yes Assistive Devices: Glasses Review of Systems 2 Review of Systems: All systems reviewed and are unremarkable except as noted in HPI and below. Denies fever, chills, fatigue, headache, nasal congestion, sore throat, cough, chest pain, palpitations, orthopnea, PND, abdominal pain, n/v/d, constipation, dysuria, hematuria, frequency, back pain, joint pain or swelling, easy bruising or bleeding, skin lesions or rashes. Physical Exam 2 Physical Exam: GENERAL: 73 yo overweight elderly M. NAD. EYES: EOMI. PERRLA. Anicteric. HENT: Moist mucous membranes. No scleral icterus. No cervical lymphadenopathy. LUNGS: Mildly labored, diminished in bases b/l. Mild end expiratory wheezes in b/l upper lung soto. CARDIOVASCULAR: Regular rate and rhythm. ABDOMEN: Soft but taunt, mildly distended. Nontender. No palpable masses. BS normoactive x 4 quad. EXTREMITIES: +2 b/l LE edema. Non-tender. Peripheral pulses +2/4. NEUROLOGIC: A&O x3. No focal neurological deficits. CN II-XII grossly intact. PSYCHIATRIC: Cooperative. Appropriate mood and affect. SKIN: Warm, dry, intact. No rashes or lesions. Results & Data Results & Data Vital Signs (Past 12 Hours) Vital Signs Temp Pulse Pulse Resp BP BP Pulse Ox 05/02/24 08:47 71 26 H 163/90 H 95 05/02/24 08:12 69 19 92 05/02/24 07:42 48 L 16 94 05/02/24 07:12 53 L 13 95 05/02/24 06:36 57 L 13 90 05/02/24 06:21 59 L 14 95 05/02/24 06:21 59 L 05/02/24 06:16 61 18 165/76 H 95 05/02/24 06:15 95 05/02/24 06:10 86 L 05/02/24 06:02 36.4 C L 71 20 151/76 H 93 O2 Del Method O2 Flow Rate 05/02/24 08:47 Nasal Cannula 4 05/02/24 08:12 Nasal Cannula 3 05/02/24 07:42 05/02/24 07:12 05/02/24 06:36 05/02/24 06:21 05/02/24 06:21 05/02/24 06:16 Nasal Cannula 4 05/02/24 06:15 Nasal Cannula 4 05/02/24 06:10 Room Air 0 05/02/24 06:02 Room Air Laboratory Results 05/02/24 06:15 05/02/24 06:15 Diagnostic Findings Chest X-Ray 05/02/24 06:07 EXAM: XR chest 1V portable CLINICAL HISTORY: DYSPNEA SDM INPATIENT TECHNIQUE: X-ray examination of the chest AP portable view. COMPARISON: 05/26/2022 FINDINGS: Faint opacification of the left lower zone with of the lung and to lesser extent right lower zone could be pulmonary infiltrate obscuring the left costophrenic angle. Cardiac size is enlarged. Prominent bilateral hilar vascular markings. Evidence of sternotomy sutures seen. The right lung is clear. No pneumothorax. Intact bony thorax. IMPRESSION: 1. Cardiomegaly with prominent right hilar vascular markings could be due to pulmonary edema. 2. Faint opacification bilateral more left lower lung zone obscuring the left costophrenic angle could be pulmonary edema rather than infection with mild effusion. 3. New interval findings compared to the prior study. Electronically signed by Twyla Mustafa 05-02-2024 07:25 AM Chest CTA 05/02/24 07:18 CT ANGIOGRAPHY OF THE CHEST, PULMONARY EMBOLUS PROTOCOL CLINICAL HISTORY: Shortness of breath and chest pain. Evaluate for pulmonary embolus. COMPARISON STUDY: Chest CT May 02, 2009. Chest radiograph performed earlier today. TECHNIQUE: Following IV administration of 120 mL of Optiray, helical axial images of the chest were obtained utilizing the pulmonary embolus protocol. Maximal intensity projections and sagittal and coronal reformats were viewed on an independent 3D workstation. IV contrast was administered without complication. Automated exposure control was utilized for the study. A dose lowering technique was utilized adhering to the principles of ALARA. CT DOSE: 1015.95 mGy.cm FINDINGS: No pulmonary emboli are identified. There are median sternotomy wires and postoperative findings from bypass grafting. The heart is moderately enlarged. There is no pericardial effusion. Extensive coronary artery calcification is present. Several mildly enlarged mediastinal lymph nodes are present. A prevascular node on image 213 of 257 measures 1.8 x 1.1 cm. There are moderate bilateral pleural effusions. Subpleural opacities favor atelectasis. No consolidation is identified to suggest pneumonia. Central airways are patent. There are suspected mild pulmonary edema. There is no pneumothorax. Body wall edema is present. Visualized portions of the upper abdomen demonstrate cirrhotic liver with a small amount of perihepatic ascites. The spleen is mildly enlarged. There are upper abdominal collaterals. IMPRESSION: 1. No pulmonary emboli identified. 2. Cardiomegaly with mild interstitial pulmonary edema and moderate bilateral pleural effusions. 3. Bilateral lower lobe and lingular opacities favor atelectasis. 4. Cirrhotic liver. Splenomegaly, trace perihepatic ascites and upper abdominal collaterals indicate portal hypertension. 5. Mildly enlarged mediastinal lymph nodes which are nonspecific but likely benign. A follow-up chest CT in 6 months is recommended. ACT 112: Negative or not required by law. Electronically signed by: Douglas Nair M.D. 05/02/2024 8:33 AM ECG Additional Comments: EKG - NSR with incomplete RBBB, prolonged QTc Code Status & VTE Plan Code Status Full - d/w patient and Supervising Physician Co-Signing Physician Notes Attending Attestation & Admission Note: Pt seen/examined, chart reviewed, care plan d/w DENVER Payton. I agree w/ the bagley components of her admission H/P with the following addition - * pancytopenia 73yo male with history of CAD s/p CABG (2007), BPH, chronic alcohol use, HTN, hyperlipidemia presents with worsening shortness of breath, ANDREWS, edema of legs, abdominal swelling, and orthopnea. Symptoms began within the last week. Upon presentation found to be in acute CHF with pulm edema, effusions, etc. s/p Lasix IV in the ER. Pt denies any previous h/o etoh withdrawal. PMH/PSH/allergies/meds/sochx/famhx - reviewed VSS, afebrile exam: gen - gets dyspneic with moving about in the bed, otherwise NAD, no signs of symptoms of etoh withdrawal neck - JVD to the jaw mouth - MMM heart - RRR, s1 s2, no murmur lungs - b/l rales extending 1/[address] up back, mildly decreased BS bases, dyspneic & tachypneic when he moves around abd - distended (body wall edema vs ascites), BS+, NT, no HSM ext - severe edema LLE - about 3+ extending to the knee; RLE - 2+ edema extending to the knee neuro - no tremor or signs of withdrawal labs reviewed - Na level 116 mild pancytopenia imaging reviewed including CTA chest + cxr EKG reviewed - NSR, IRBBB, no ST changes; mildly prolonged QTc A/P: 1. acute CHF - uncertain if systolic or diastolic. Cirrhosis - presumably from etoh abuse - may be contributing to volume overload as well. 2. suspected cirrhosis 2nd etoh abuse. 3. pancytopenia - due to #2? B12/folate within the last year wnl. TSH today wnl. 4. acute hypoxic respiratory failure - 2nd to #1. 5. known CAD s/p CABG 2007. 6. HTN. 7. alcohol abuse - daily consumption, probably 6+ beers/day. 8. severe hyponatremia - 2nd to hypervolemic hyponatremia. * cont lasix BID IV * serial BMPs to ensure proper correction of hyponatremia * dedicated abdominal u/s to look at liver/spleen/etc. * await echo * consider formal cards consult - follows with Dr Gerald Malik, [facility] * AWSS protocol * add MVI/thiamine 200 BID/folate * defer on gabapentin taper or librium but low threshold to institute such Attempted to call pt's with update - she did not answer, voicemail full - could not leave message. Julian Hughes MD PG Care Time/CCT Total # of Minutes Spent Total Time Spent with Patient: Total time spent is greater than 50% in coordination of care (as documented) at patient's floor/unit and/or counseling patient: 80 minutes Coding Level of Care Code 68017 INT INP/OBS CARE 3/75MIN Diagnoses Acute CHF I50.9 Acute and chronic respiratory failure with hypoxia J96.21 Hyponatremia E87.1 Hypomagnesemia E83.42 Liver cirrhosis, alcoholic K70.30 Pancytopenia D61.818
[2024-05-02] MEDS: ALBUT/IPRATROP 3MG/0.5MG NEB 3 ML VIAL NEB STA (09:53)
[2024-05-02] MEDS: ALBUT/IPRATROP 3MG/0.5MG NEB 3 ML VIAL ONE (09:53)
[2024-05-02] MEDS: METOPROLOL SUCC 50MG EXT REL TAB PO STA (10:13)
[2024-05-02] MEDS ORDERED: POLYETHYLENE (MIRALAX) 17 GM PACK PO PRN (10:44)
[2024-05-02] MEDS ORDERED: ONDANSETRON INJ 2 MG/ML 2 ML VIAL IV PRN (10:44)
[2024-05-02] MEDS ORDERED: ALUMINUM/MAGNESIUM SUSP 30 ML UDC PO PRN (10:44)
[2024-05-02] MEDS ORDERED: ACETAMINOPHEN 325 MG TAB PO PRN (10:44)
[2024-05-02] MEDS ORDERED: MAGNESIUM HYDROXIDE SUSP 30 ML UDC PO PRN (10:44)
[2024-05-02] MEDS ORDERED: INFLUENZA VACC TS2024-25(65y+)/PF (IIV3) 0.5mL Syr IM ONE (10:59)
[2024-05-02] MEDS: ALBUT/IPRATROP 3MG/0.5MG NEB 3 ML VIAL NEB SCH (11:01)
[2024-05-02] MEDS ORDERED: LORazepam 1 MG TAB PO PRN (11:15)
[2024-05-02] MEDS: lisinopril 40 MG TAB PO SCH (12:16)
[2024-05-02] MEDS: PANTOprazole 40 MG TAB PO SCH (12:17)
[2024-05-02] MEDS: ASPIRIN 81 MG ECTAB PO SCH (12:17)
[2024-05-02] MEDS: THIAMINE HCL 100 MG TAB PO SCH (12:21)
[2024-05-02] MEDS: FOLIC ACID 1 MG TAB PO SCH (12:21)
[2024-05-02] MEDS: MULTIVITAMIN TAB PO SCH (12:21)
[2024-05-02 13:20] LABS: BUN Creatinine Ratio 17.1 (10-20); Calcium 8.9 mg/dl (8.6-10.3); Creatinine Clr Calc Pharmacy 108.5 ml/min; Potassium 3.4 mmol/L (3.5-5.1)
[2024-05-02] MEDS: POTASSIUM CHLORIDE CRTAB 20 MEQ TABCR PO STA (15:36)
[2024-05-02] MEDS: FUROSEMIDE 40 MG TAB PO SCH (17:17)
[2024-05-02 18:43] LABS: Creatinine Clr Calc Pharmacy 82.5 ml/min; Potassium 3.8 mmol/L (3.5-5.1)
[2024-05-02] MEDS: POTASSIUM CHLORIDE CRTAB 20 MEQ TABCR PO SCH (20:13)
[2024-05-02] MEDS: NICOTINE POLACRILEX 2 MG GUM MT PRN (20:14)
[2024-05-02 22:16] LABS: Appearance Urine Clear (Clear); Bilirubin Urine Negative (Negative); Blood Urine Negative (Negative); Color Urine Yellow; Glucose Urine UA Negative (Negative); Ketones Urine Negative (Negative); Leukocyte Esterase Urine Negative (Negative); Nitrite Urine Negative (Negative); Protein Urine Negative (Negative); Urobilinogen Urine Negative (Negative)
--- NOTE | 2024-05-03 06:07 | Ultrasound Report ---
EXAM: US abdomen limited CLINICAL HISTORY: ?cirrhosis Limited exam due to inc pt body habitus PANC: nonvis due to bowel LIVER: 15.8 cm, echogenic and heterogenous appearing, somewhat nodular contour CBD: up to 5.7 mm GB: no definite stones/sludge seen, wall = 2.7 mm, negative Jeffers''s RK: 13.7 cm, no hydro. Hyperechoic area again seen in LP = 9 x 9 mm ? scarring vs angiomyolipoma TECHNIQUE: Ultrasound examination of the abdomen. COMPARISON: 04/18/2024. FINDINGS: The liver is seen of average size measuring 15.8 cm with echogenic heterogenous parenchymal echotexture. Mild nodular contour of the liver however not well-appreciated in the submitted images. No definite focal lesion seen within the liver. No intrahepatic biliary dilatation seen. The gallbladder is seen distended with no definite stone/sludge seen within. Normal wall thickness measuring 2.7 mm. Negative Jeffers sign. The common bile duct is not dilated measuring up to 5.7 mm. The pancreas is not visualized due to overlying bowel gas. The right kidney measures 13.7 in longitudinal diameter. No hydronephrosis of the right kidney is seen. A hyperechoic area seen again in the lower pole of the right kidney measuring 9 x 9 mm most likely scarring versus angiomyolipoma. No free fluid in the abdomen as per the submitted images. IMPRESSION: 1. Limited examination due to increased patient body habitus. 2. Heterogenous texture of the liver with possibly nodular contour suggesting chronic liver disease/cirrhosis. 3. Pancreas not visualized due to overlying bowel gas. 4. Hyperechoic area at the right kidney lower pole most likely scarring versus angiomyolipoma. 5. Compared to prior study dated 04/18/2024, no significant interval changes seen. 6. CT urography be advised if clinically indicated. Electronically signed by Brody Hazel 05-03-2024 06:06 AM
--- NOTE | 2024-05-03 06:20 | Ultrasound Report ---
EXAM: US abdomen ltd ascites CLINICAL HISTORY: ? ascites 4 quadrants scanned No definite fluid collections visualized in abdomen Pleural effusion noted on RT sd TECHNIQUE: Ultrasound examination of the limited abdomen and the four quadrants were scanned. COMPARISON: 04/18/2024 FINDINGS: The four quadrants of the abdomen with scanned. No definite ascites seen. Possible mild right pleural effusion is seen. IMPRESSION: 1. No definite ascites seen. Stable. 2. Possible mild right pleural effusion is seen. A new finding. 3. Clinical correlation is advised. 4. CT abdomen may be advised if clinically indicated. Electronically signed by Brody Hazel 05-03-2024 06:19 AM
[2024-05-03 06:33] LABS: Basophils # (auto) 0.03 K/uL (0.00-0.20); Basophils % (auto) 0.8 %; Eosinophils # (auto) 0.08 K/uL (0.00-0.50); Eosinophils % (auto) 2.1 %; Hematocrit (blood only) 27.4 % (42.0-52.0); Hemoglobin 9.5 g/dl (14.0-18.0); Immature Granulocytes # (auto) 0.01 K/uL (0.01-0.20); Immature Granulocytes % (auto) 0.3 %; Lymphocytes # (auto) 0.73 K/uL (1.20-3.40); Lymphocytes % (auto) 19.1 %; Mean Corpuscular Hemoglobin 31.1 pg (25.0-34.0); Mean Corpuscular Hgb Conc 34.7 g/dL (32.0-36.0); Mean Corpuscular Volume 89.8 fL (80.0-100.0); Mean Platelet Volume 9.5 fL (9.4-12.4); Monocytes # (auto) 1.02 K/uL (0.11-0.59); Monocytes % (auto) 26.6 %; Neutrophils # (auto) 1.96 K/uL (1.40-6.50); Neutrophils % (auto) 51.1 %; Platelet Count 123 K/uL (130-400); RDW Coefficient of Variation 12.8 % (11.5-14.5); RDW Standard Deviation 42.1 fL (36.4-46.3); Red Blood Count 3.05 M/uL (4.70-6.10); White Blood Count 3.83 K/ul (4.8-10.8)
[2024-05-03 06:43] LABS: Albumin Globulin Ratio 1.5 (0.9-2); Albumin Level 3.8 gm/dl (3.4-5.0); Bilirubin,Total 1.2 mg/dl (0.2-1.0); Calcium 8.7 mg/dl (8.6-10.3); Creatinine Clr Calc Pharmacy 94.4 ml/min; Globulin 2.5 gm/dl (2.5-4.0); Magnesium 1.7 mg/dl (1.7-2.4); Total Protein 6.3 gm/dl (6.0-8.3)
[2024-05-03] MEDS: ENOXAPARIN INJ 40 MG/0.4 ML SYR SQ SCH (09:07)
[2024-05-03] MEDS: ATORVASTATIN 40 MG TAB PO SCH (09:07)
[2024-05-03] MEDS: FERROUS SULFATE 325 MG TAB PO SCH (09:08)
[2024-05-03] MEDS: METOPROLOL SUCC 50MG EXT REL TAB PO SCH (09:09)
--- NOTE | 2024-05-03 12:55 | XCELERA ---
[id number]
--- NOTE | 2024-05-03 17:58 | Hospitalist Progress Note ---
Date of Service May 03, 2024 Assessment & Plan (1) Acute CHF: Plan: 73 yo M presets with ANDREWS, b/l LE edema, with markedly elevated BNP and radiologic evidence of CHF new onset acute diastolic heart failure, underlying cirrhosis probably also exacerbating his volume overload remains acutely volume overloaded but improved compared to admission. weight is probably down bed scale weight this morning inaccurate, net -3900. creatinine remains normal at 0.88 and electrolytes are acceptable TTEEF 50-55%, mild concentric LVH, moderate left atrial dilation, volume overloaded with dilated IVC and right arterial pressure 15 - continue diuresis appears that Lasix was inadvertently ordered p.o. instead of IV on admission, however, he is diuresing well on this so continue 40 p.o. twice daily and potassium 40 mEq twice daily - start spironolactone prior to discharge - continue metoprolol succinate and lisinopril - referral to heart failure clinic he will also follow-up with his tax professional in early May as scheduled I lifted his fluid restriction since hyponatremia is correcting a little bit too fast (2) Hyponatremia: Plan: Acute on chronic - mixed. component of hypervolemic hyponatremia, also may have SIADH since urine sodium inappropriately elevated - TSH WNL - sodium improved from 116 to 125 lat 24h - continue diuresis but lift fluid restriction - AM BMP (3) Acute and chronic respiratory failure with hypoxia: Plan: Secondary to acute CHF with moderate bilateral pleural effusions - resolved and on room air today (4) Hypomagnesemia: Plan: replaced IV (5) Liver cirrhosis, alcoholic: Plan: - Evidence of cirrhosis on CTA chest with small amount of ascites. RUQ US with findings of cirrhosis, portal hypertension and minimal ascites - Lengthy discussion with patient and regarding importance of etoh cessation, reinforced with him 05/03 - Bili improved from 1.6-->1.2 - No withdrawal symptoms (6) Pancytopenia: Plan: May be related to direct toxic effect of EtOH on bone marrow and/or cirrhosis -alcohol cessation -repeat BMP in a month Plan Chronic stable medical problems: - HTN - Continue Lisinopril and change Lopressor to Toprol as above, hold Amlodipine - HLD - Resume Lipitor - Toribio's esophagus - Change omeprazole to pantoprazole per hospital formulary - Anemia - slightly worse than baseline likely due to hypervolemia. Ferritin recently 30 - continue oral iron Lovenox for DVT ppx. Admission and Anticipated Discharge Date Admission Date: May 02, 2024 Subjective Shortness of breath significantly improved Still with ANDREWS but mild Leg edema improved but still pretty severe Physical Exam 2 Physical Exam: PHYSICAL EXAMINATION Last 24h vital signs reviewed, see documentation in flowsheet General: comfortable appearing, no distress, sitting on edge of the bed HEENT: Normocephalic, atraumatic, pupils round and equal, sclerae anicteric, no conjunctival injection, moist mucus membranes Lungs: Normal respiratory effort. Clear to auscultation bilaterally. No RRW Heart: Regular rate and rhythm, soft systolic murmur right upper sternal border + JVD Abdomen: Soft, nontender, nondistended. Bowel sounds present. Extremities: Warm, dry, well-perfused. 3+ lower extremity edema. L>R because of old SVG harvest on left Neuro: Alert and oriented x 4, face symmetric, moves 4 extremities well Psych: Normal affect and behavior Results & Data Results & Data Vital Signs (Past 12 Hours) Vital Signs Temp Pulse Pulse Resp BP BP Pulse Ox 05/03/24 15:17 36.3 C L 79 18 126/55 L 97 05/03/24 14:36 71 18 96 05/03/24 14:12 05/03/24 13:00 72 05/03/24 11:19 36.6 C 80 16 141/65 H 96 05/03/24 09:58 78 16 95 05/03/24 08:01 36.5 C 78 18 135/70 97 05/03/24 07:45 05/03/24 07:27 64 16 97 05/03/24 07:00 57 L Pulse Ox Pulse Ox Pulse Ox O2 Del Method O2 Flow Rate O2 Flow Rate O2 Flow Rate 05/03/24 15:17 Room Air 05/03/24 14:36 Room Air 05/03/24 14:12 94 96 90 0 0 05/03/24 13:00 05/03/24 11:19 Nasal Cannula 05/03/24 09:58 Nasal Cannula 2 05/03/24 08:01 Nasal Cannula 05/03/24 07:45 Nasal Cannula 2 05/03/24 07:27 Nasal Cannula 3 05/03/24 07:00 O2 Flow Rate 05/03/24 15:17 05/03/24 14:36 05/03/24 14:12 0 05/03/24 13:00 05/03/24 11:19 05/03/24 09:58 05/03/24 08:01 05/03/24 07:45 05/03/24 07:27 05/03/24 07:00 Laboratory Results 05/03/24 05:58 05/03/24 05:58 PG Care Time/CCT Total # of Minutes Spent Total Time Spent with Patient: Total time spent is greater than 50% in coordination of care (as documented) at patient's floor/unit and/or counseling patient: Coding Level of Care Code 99953 SUB INP/OBS CARE 2/35MIN Diagnoses Acute CHF I50.9 Hyponatremia E87.1 Acute and chronic respiratory failure with hypoxia J96.21 Hypomagnesemia E83.42 Liver cirrhosis, alcoholic K70.30 Pancytopenia D61.818
[2024-05-04 07:14] LABS: BUN Creatinine Ratio 18.4 (10-20); Calcium 8.8 mg/dl (8.6-10.3); Creatinine Clr Calc Pharmacy 94.7 ml/min; Magnesium 1.7 mg/dl (1.7-2.4); Potassium 4.1 mmol/L (3.5-5.1)
[2024-05-04 07:57] VITALS: TEMP 98.2
--- NOTE | 2024-05-04 10:50 | Electrocardiogram Report ---
Test Reason : Blood Pressure : */* mmHG Vent. Rate : 71 BPM Atrial Rate : 71 BPM P-R Int : 144 ms QRS Dur : 112 ms QT Int : 460 ms P-R-T Axes : * 64 5 degrees QTcB Int : 499 ms Normal sinus rhythm Incomplete right bundle branch block Prolonged QT Abnormal ECG When compared with ECG of 03-Jul-2023 10:37, (unconfirmed) WI interval has decreased Confirmed by Gerald Malik ([id number]) on 05/04/2024 10:49:34 AM Referred By: Confirmed By: Gerald Malik
[2024-05-04 11:14] VITALS: PULSE 87; RESP 17; O2SAT 97
[2024-05-04 11:37] VITALS: BP 141/65
--- NOTE | 2024-05-04 17:36 | Discharge Summary ---
Discharge Summary Date of Service May 04, 2024 Principal Dx & Hospital Course #1 = Principal Diagnosis (1) Acute CHF: 73 yo M presets with ANDREWS, b/l LE edema, with markedly elevated BNP and radiologic evidence of CHF new onset acute diastolic heart failure, underlying cirrhosis probably also exacerbating his volume overload remains acutely volume overloaded but improved compared to admission. weight is probably down bed scale weight this morning inaccurate, net -[id number]. creatinine remains normal at 0.88 and electrolytes are acceptable TTEEF 50-55%, mild concentric LVH, moderate left atrial dilation, volume overloaded with dilated IVC and right arterial pressure 15 - continue diuresis appears that Lasix was inadvertently ordered p.o. instead of IV on admission, however, he is diuresing well on this so continue 40 p.o. twice daily and potassium 40 mEq twice daily - start spironolactone prior to discharge - continue metoprolol succinate and lisinopril - considered SGLT-2 but caution with ongoing alcohol use, cirrhosis, new d iuretics - deferred to outpatient setting - referral to heart failure clinic he will also follow-up with his marriage counselor in early May as scheduled (2) Hyponatremia: Acute on chronic - mixed. component of hypervolemic hyponatremia, also may have SIADH since urine sodium inappropriately elevated - TSH WNL - sodium improved from 116 to 125 lat 24h - continue diuresis but lift fluid restriction - AM BMP (3) Acute and chronic respiratory failure with hypoxia: Secondary to acute CHF with moderate bilateral pleural effusions - resolved and on room air today (4) Liver cirrhosis, alcoholic: - Evidence of cirrhosis on CTA chest with small amount of ascites. 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 Ferritin recently 30 - continue oral iron Notes For Next Care Provider Please check volume status, BMP on follow up, consider starting SGLT-2 Reinforce alcohol cessation GI referral for cirrhosis There were some incidental findings on imaging that require radiographic follow up: Renal ultrasound: 0.8 cm cortical echogenic focus within the lower pole of the right kidney, stable to slightly increased since ultrasound of December 31, 2018. This likely reflects a small angiomyolipoma or scarring. A follow-up ultrasound in one year to ensure continued stability is recommended. Chest CT: Mildly enlarged mediastinal lymph nodes which are nonspecific but likely benign. A follow-up chest CT in 6 months is recommended. Medication Changes From Visit Started furosemide, spironolactone Changed metoprolol to succinate Recommended thiamine and folate supplement Admission HPI Per Admitting Provider Eusebio is a 73 yo M with a pmhx of CAD s/p 3-vessel CABG, HTN, HLD, Toribio's esophagus and ETOH use who presents to the ER c/o ANDREWS progressively worsening since . He notes that he began experiencing increased dyspnea, primarily with exertion and noted that he was unable to walk the usual distance without having to stop and rest due to his shortness of breath. He also has increased lower extremity edema, bilaterally, with the left worse than the right. He has a h/o CABG in 2008 and had vein harvesting from his left leg. He follows with Dr. Malik. He has no prior h/o CHF or ID. He denies chest pain, palpitations, cough, congestion, fever or chills. He does endorse EOTH use, his notes that he has been consuming ETOH on a regular basis for "too many years to count." He drink 4 beers per day, but not all at once, usually over the space of an afternoon. He denies use of hard liquor. Does not drink much water, maybe a little before bed. He has also been consuming more added salt in his diet than usual. He denies orthopnea or PND. He presented to the ER where he was noted to be hypertensive, tachypneic and hypoxic with a sat of 86% on room air. He denies tobacco use. His w/u was significant for a sodium of 116 (prior Na from Mar 2024 was 133), a markedly elevated BNP of 1212, negative HS trop and EKG nonacute, with radiographic evidence of CHF with moderate bilateral pleural effusions, cardiomegaly and PVC. He was ordered a dose if IV Lasix 40mg x1 and referred for admission to the hospital medicine service. Discharge Exam PHYSICAL EXAMINATION Last 24h vital signs reviewed, see documentation in flowsheet General: comfortable appearing, no distress, sitting in chair in street clothes HEENT: Normocephalic, atraumatic, pupils round and equal, sclerae anicteric, no conjunctival injection, moist mucus membranes Lungs: Normal respiratory effort. Clear to auscultation bilaterally. No RRW Heart: Regular rate and rhythm, soft systolic murmur right upper sternal border no JVD sitting upright however Abdomen: Soft, nontender, nondistended. Bowel sounds present. Extremities: Warm, dry, well-perfused. 3+ lower extremity edema improved from yesterday. L>R because of old SVG harvest on left Neuro: Alert and oriented x 4, face symmetric, moves 4 extremities well Psych: Normal affect and behavior Discharge Plan Discharge Items Patient Disposition: Home - Self-Care Reason For Visit: CHF Discharge Diagnosis: Acute HFpEF, alcoholic cirrhosis Activity: Resume your previous activity Non-emergency contact: Primary Care Provider and Nursing Secretary Call non-emergency contact if: you have any medication questions, your symptoms worsen and you have a fever Follow-up/Referrals: Erick Byers CRNP [Primary Care Provider] - 05/11/24 8:20 am (Hospital follow is scheduled for May 11, 2024 at 8:20am) Gerald Malik MD [Physician] - (Appointment is scheduled with Kaela Baez PA-C) Kaela Baez PA-C [Physician Performance Management Consultant] - 05/09/24 2:00 pm (Hospital follow up is scheduled for May 09, 2024 at 2:00 pm) Diet: Low Sodium (2gm) Addtl Attending Provider Instructions: You were treated for new onset of heart failure, and liver cirrhosis related to alcohol use. This caused you to develop fluid overload with fluid in your lungs and on your legs You also had very low blood sodium level that was caused by the fluid overload, it has nearly resolved with diuretics -follow low salt diet -take diuretics - furosemide and spironolactone - in the morning -metoprolol was changed to the long-acting form -follow daily weight on bathroom scale and keep a log -follow up in CHF clinic - should be calling you to schedule within a week or so It is critical that you stop drinking alcohol now - your liver is scarred (cirrhosis) from alcohol and barely able to do its job. If it gets any worse you will have much worse symptoms of liver failure which can include severe swelling of legs and belly, jaundice (turning yellow), bleeding problems, and confusion. -if you have a hard time quitting, talk to your doctor about medications to help -an AA meeting or other rehab is recommended I also strongly recommend smoking cessation -nicotine repacement is available at the drug store There were some incidental findings on your tests - please follow up with primary care for repeat testing as indicated: Renal ultrasound: 0.8 cm cortical echogenic focus within the lower pole of the right kidney, stable to slightly increased since ultrasound of December 31, 2018. This likely reflects a small angiomyolipoma or scarring. A follow-up ultrasound in one year to ensure continued stability is recommended. Chest CT: Mildly enlarged mediastinal lymph nodes which are nonspecific but likely benign. A follow-up chest CT in 6 months is recommended. It was a pleaure taking care of you in the hospital, Shey Santoro MD Addtl Installer Provider Instructions: Call your Primary Care doctor if any of the following symptoms or problems start or get worse: * Shortness of breath or difficulty breathing * Wake up at night short of breath * Chest pain * Cough * Swelling of your hands, feet, or legs * More fatigued or tired with your normal activity * Palpitations - sudden fast heart beats WEIGHT * Weigh yourself every morning after using the bathroom. * Use the same scale. * Wear the same amount of clothing. * Write your weight down on a chart. * Call your Primary Care doctor if you gain more than 2-3 pounds in 1-2 days. MEDICATIONS * Use this discharge instruction sheet for medication instructions. * Take your medications at the time your doctor ordered. * Do not skip a dose of your medicines. * If you miss a dose of medicine, take it as soon as possible, but DO NOT DOUBLE A DOSE. * Read your medicine information when you get home. * Know all of the side effects of your medicine. If in doubt, ask your pharmacist * Call your Primary Care doctor's office if you have any side effects. * Be sure all of your doctors know what medicine and herbs you take (including cold, flu, and herbal medicine). Take the following with you to your follow-up doctor appointments: * Weight Chart * Medication List * List of questions Do not drink excessive alcohol, beer or wine. Pending Studies at Discharge: No Stand-Alone Forms: My [facility], Smoking Cessation Medications and DC Order Prescriptions: New metoprolol succinate 50 mg Tablet Extended Release 24 Hr 50 mg PO QAM Qty: 30 0RF furosemide 40 mg Tablet 40 mg PO DAILY Qty: 30 0RF thiamine HCl (vitamin B1) 100 mg Tablet 100 mg PO DAILY Qty: 0 0RF Rx Instructions: buy over the counter folic acid 1 mg Tablet 1 mg PO QAM Qty: 30 0RF Rx Instructions: buy over the counter spironolactone 50 mg tablet 50 mg PO DAILY Qty: 30 0RF Continued atorvastatin 80 mg tablet 80 mg PO QAM Qty: 90 3RF amlodipine 5 mg tablet 5 mg PO HS Qty: 90 3RF omeprazole 40 mg capsule,delayed release(DR/EC) 40 mg PO QAM Qty: 90 1RF lisinopril 40 mg tablet 40 mg PO QAM Qty: 90 3RF ammonium lactate 12 % cream 1 applic topical DAILY PRN (Reason: dry skin) Qty: 385 0RF (DME) compr.stocking,knee,long,large Misc See Rx Instructions .Route Qty: 12 1RF Rx Instructions: As directed indomethacin 50 mg capsule 50 mg PO TID PRN (Reason: Gout) Qty: 30 3RF Rx Instructions: administer with food or milk No fill history available fluocinonide 0.05 % cream 1 applic topical BID PRN (Reason: Rash) Qty: 60 0RF Rx Instructions: No fill history available Apply to areas of the trunk twice daily x 2 weeks as needed for flaring. multivitamin tablet 1 tab PO QAM sildenafil (pulm.hypertension) 20 mg tablet 100 mg PO ONCE PRN (Reason: sexual activity) Qty: 30 11RF Rx Instructions: last filled 10/2023 6 day supply Take approx 1 hour prior to activity. Avoid large or heavy meals for maximum effectiveness. ferrous sulfate 325 mg (65 mg iron) tablet 325 mg PO DAILY tadalafil 5 mg tablet 20 mg PO ONCE PRN (Reason: sexual activity) Qty: 30 11RF Rx Instructions: unable to verify. no fill history available aspirin 81 mg Tablet,Delayed Release (Dr/Ec) 81 mg PO QAM ascorbic acid (vitamin C) [Vitamin C] 1,000 mg tablet 1,000 mg PO QAM Discontinued metoprolol tartrate 50 mg tablet 50 mg PO BID Qty: 180 3RF Discharge Orders: Discharge Order- CHF (Routine); Ordered 05/04/24 Ordered By: Shey Santoro Admission Data Admit Date/Time: 05/02/24 09:01 Attending Provider: Shey Santoro Admit Provider: Julian Hughes Primary Care Provider: Erick Byers Other Providers: Julian Hughes Other Interventions: Discharge Summary Assessment (RN) Last Done: 05/04/24 11:34 Hospital Stay Data Consultations 05/02/24 08:23 ED Decision to Admit Stat Diagnostic Imagining Performed 05/02/24 07:18 CT for pulmonary embolism PE [CT angio chest PE protocol] Stat 05/03/24 US abdomen limited Routine US abdomen ltd ascites Routine Pending Results Patient Have Any Pending Studies at Discharge: No Discharge Instructions Given to Patient (Per Discharging Provider) You were treated for new onset of heart failure, and liver cirrhosis related to alcohol use. This caused you to develop fluid overload with fluid in your lungs and on your legs You also had very low blood sodium level that was caused by the fluid overload, it has nearly resolved with diuretics -follow low salt diet -take diuretics - furosemide and spironolactone - in the morning -metoprolol was changed to the long-acting form -follow daily weight on bathroom scale and keep a log -follow up in CHF clinic - should be calling you to schedule within a week or so It is critical that you stop drinking alcohol now - your liver is scarred (cirrhosis) from alcohol and barely able to do its job. If it gets any worse you will have much worse symptoms of liver failure which can include severe swelling of legs and belly, jaundice (turning yellow), bleeding problems, and confusion. -if you have a hard time quitting, talk to your doctor about medications to help -an AA meeting or other rehab is recommended I also strongly recommend smoking cessation -nicotine repacement is available at the drug store There were some incidental findings on your tests - please follow up with primary care for repeat testing as indicated: Renal ultrasound: 0.8 cm cortical echogenic focus within the lower pole of the right kidney, stable to slightly increased since ultrasound of December 31, 2018. This likely reflects a small angiomyolipoma or scarring. A follow-up ultrasound in one year to ensure continued stability is recommended. Chest CT: Mildly enlarged mediastinal lymph nodes which are nonspecific but likely benign. A follow-up chest CT in 6 months is recommended. It was a pleaure taking care of you in the hospital, Shey Santoro MD Total Time Total Time Spent Total Time Spent (In Minutes): <30 minutes Coding Level of Care Code 97338 IN/OBS DISCH 30 MIN/LESS Diagnoses Acute CHF I50.9 Hyponatremia E87.1 Acute and chronic respiratory failure with hypoxia J96.21 Liver cirrhosis, alcoholic K70.30 Pancytopenia D61.818 Hypomagnesemia E83.42
== END 2024-05-04 12:40 | disposition home or self-care (01) | DRG 291 ==
LOC: ED 05:57 → SUATTDRO 09:01 → 2S 09:01

== ENCOUNTER 2024-05-28 10:45 | Inpatient (IN) ==
[2024-05-28 11:34] LABS: Basophils # (auto) 0.04 K/uL (0.00-0.20); Basophils % (auto) 0.7 %; Eosinophils % (auto) 1.9 %; Hematocrit (blood only) 35.9 % (42.0-52.0); Hemoglobin 12.3 g/dl (14.0-18.0); Immature Granulocytes # (auto) 0.02 K/uL (0.01-0.20); Immature Granulocytes % (auto) 0.4 %; Lymphocytes # (auto) 0.91 K/uL (1.20-3.40); Lymphocytes % (auto) 16.9 %; Mean Corpuscular Hemoglobin 30.6 pg (25.0-34.0); Mean Corpuscular Hgb Conc 34.3 g/dL (32.0-36.0); Mean Corpuscular Volume 89.3 fL (80.0-100.0); Mean Platelet Volume 10.4 fL (9.4-12.4); Neutrophils # (auto) 3.61 K/uL (1.40-6.50); Neutrophils % (auto) 67.1 %; Platelet Count 147 K/uL (130-400); RDW Coefficient of Variation 13.5 % (11.5-14.5); RDW Standard Deviation 44.3 fL (36.4-46.3); Red Blood Count 4.02 M/uL (4.70-6.10); White Blood Count 5.38 K/ul (4.8-10.8)
[2024-05-28 11:43] LABS: Alanine Aminotransferase 28 U/L (7-52); Albumin Globulin Ratio 1.3 (0.9-2); Albumin Level 4.3 gm/dl (3.4-5.0); Alkaline Phosphatase 98 U/L (34-104); Anion Gap 10 (3-11); Aspartate Aminotransferase 32 U/L (13-39); BUN Creatinine Ratio 22.9 (10-20); Bilirubin,Total 1.1 mg/dl (0.2-1.0); Blood Urea Nitrogen 32 mg/dl (6-23); Calcium 10.3 mg/dl (8.6-10.3); Carbon Dioxide 22 mmol/L (21-32); Chloride 104 mmol/L (98-107); Globulin 3.2 gm/dl (2.5-4.0); Glucose 113 mg/dl (70-99(Fasting)); Magnesium 1.7 mg/dl (1.7-2.4); Potassium 4.2 mmol/L (3.5-5.1); Sodium 136 mmol/L (136-145); Total Protein 7.5 gm/dl (6.0-8.3)
--- NOTE | 2024-05-28 11:59 | Electrocardiogram Report ---
Test Reason : Blood Pressure : */* mmHG Vent. Rate : 75 BPM Atrial Rate : 75 BPM P-R Int : 172 ms QRS Dur : 106 ms QT Int : 424 ms P-R-T Axes : 58 28 0 degrees QTcB Int : 473 ms Sinus rhythm with Premature atrial complexes Incomplete right bundle branch block T-wave inversion in Anteroseptal leads , consider ischemia T-wave inversion in Inferior leads Abnormal ECG When compared with ECG of 26-May-2024 14:31, Inverted T waves have replaced nonspecific T wave abnormality in Anterior leads Confirmed by Adrien Krishnan ([id number]) on 05/28/2024 11:59:32 AM Referred By: NO PCP Confirmed By: Adrien Krishnan
[2024-05-28 12:07] LABS: Thyroid Stimulating Hormone 1.215 uIu/ml (0.300-4.500)
--- NOTE | 2024-05-28 12:09 | XRay Report ---
XR chest 1V portable HISTORY: 73 years-old Male CHF congestive heart failure COMPARISON: 05/26/2024 TECHNIQUE: AP view the chest FINDINGS: Cardiac silhouette is enlarged. Median sternotomy. No pneumothorax, pleural effusion or airspace cons olidation. Bones of the chest appear grossly intact. IMPRESSION: Cardiomegaly without acute process. ACT 112: Negative or not required by law. The above report was generated using voice recognition software. It may contain grammatical, syntax o r spelling errors. Electronically signed by: Marcello Rivera M.D. 05/28/2024 12:07 PM
--- NOTE | 2024-05-28 12:11 | XRay Report ---
XR ankle RT min 3V routine HISTORY: 73 years-old Male right ankle pain, fall acute right ankle pain status post fall COMPARISON: None TECHNIQUE: 3 views of the right ankle FINDINGS: There is an acute obliquely oriented distal fibular fracture with fracture extension to the level of the distal tibiofibular syndesmosis. 6 cm lateral displacement. And widening of the distal tibia fibu lar syndesmosis. The lateral clear space measures 8 mm. Subtle acute medial malleolar fracture. No si gnificant displacement. Pes planus with midfoot collapse which appears chronic. Moderate diffuse soft tissue swelling. IMPRESSION: 1. Acute bimalleolar ankle fracture with pathologic widening of the tibial-fibular syndesmosis and la teral clear space. 2. Pes planus with mid foot collapse which appears chronic. ACT 112: Negative or not required by law. The above report was generated using voice recognition software. It may contain grammatical, syntax o r spelling errors. Electronically signed by: Marcello Rivera M.D. 05/28/2024 12:09 PM
--- NOTE | 2024-05-28 12:30 | Emergency Department Note ---
Impression & Plan Bimalleolar fracture of right ankle, Syncope, Adverse effect of antihypertensive ED Provider Note NAME: CHRISTIAN GLASS AGE: 73 SEX: M : 1950 ARRIVES VIA: Walk-In INFORMANT: Patient, ED PROVIDER(S): Shonda Ortega MD CHIEF COMPLAINT: Syncope, right ankle pain HPI: This is a 73-year-old male presenting for syncope. Patient notes that he was seen in the hospital previously and diagnosed CHF. He started on Lasix and antihypertensive medication. He states that since this began he has noted lightheadedness as well as 2 episodes of syncope on . He came to the ER had negative imaging, was rehydrated and sent home. He notes continued symptoms and over the course of the night had another episode of syncope. This time he twisted his right ankle. He notes no head trauma. No nausea vomiting diarrhea. No shortness of breath or chest pain. He does notes he is very fatigued/weak when he goes from sitting to standing and then occasionally syncopized this. ROS: See above HPI for pertinent positives & negatives. A total of 10 systems reviewed and were otherwise negative. PAST MEDICAL HISTORY: See Below PAST SURGICAL HISTORY: See Below FAMILY HISTORY: See Below SOCIAL HISTORY: See Below HOME MEDICATIONS: See Below ALLERGIES: See Below VITALS: See Below PHYSICAL EXAMINATION: General: resting comfortably in no acute distress Head: Normocephalic and atraumatic Eyes: Normal inspection, extraocular muscles intact Ear, nose, throat: Normal external exam Neck: Normal range of motion Respiratory: lungs clear to auscultation bilaterally Cardiovascular: Regular rate/rhythm, no murmur GI: soft, nontender, no guarding or rebound Extremities:, Right ankle deformity with slight swelling and tenderness Neuro: The patient awake and alert, appropriately conversive, no focal deficits, symmetric faces Skin: Warm, dry, and intact MEDICAL DECISION MAKING: This is a 73-year-old male presenting for syncope. Patient seen few days ago for syncope, told to cut his Lasix dosing in half which patient has done. He has persistent symptoms and syncopized again. Will do x-ray of the right ankle, chest x-ray, basic blood work, BNP. -Blood work is reviewed showing no leukocytosis, stable anemia. Electrolytes within normal limits. Creatinine downtrending. BNP slightly elevated at 212, troponin negative. -X-ray of the right ankle as Independently interpreted by me reveals distal fibular fracture, likely spiral -Chest x-ray as independently interpreted by me reveals cardiomegaly without pulmonary edema, pleural effusion or focal opacity -ECG independently interpreted by me with normal sinus rhythm, rate of 75, normal axis, normal [place], normal QRS, normal QTc, no ST segment elevations consistent with STEMI criteria -Vital sign review does reveal patient is fairly hypotensive, 90s over 60s. Slightly uptrending repeat. Patient symptomatic, already has had traumatic mechanism from his syncopal episode. Patient likely requires medication management at this time. Will discuss for admission. Differential diagnosis: Orthostatic hypotension, medication reaction, ankle fracture, intracranial hemorrhage, ACS, PE Independent History obtained from: Diagnostics interpreted by me: ECG: See above Cardiac Monitoring: An order was placed for continuous cardiac monitoring. The monitor shows a rate of 86 with sinus rhythm. Past Med/Surg History Problem List (Updated 05/28/24 @ 18:44 by Shonda Ortega MD) Adverse effect of antihypertensive (Acute) Syncope (Acute) Bimalleolar fracture of right ankle (Acute) MUNA (acute kidney injury) Orthostatic hypotension Bimalleolar fracture of right ankle CHF (congestive heart failure) Syncope and collapse Episodic lightheadedness (Acute) Hypotension (Acute) Mediastinal lymphadenopathy Pancytopenia Liver cirrhosis, alcoholic Iron deficiency anemia Dyslipidemia (Chronic) Elevated PSA (Acute) Erectile dysfunction (Acute) Hyperglycemia Smokeless tobacco use (Chronic) Anemia (Chronic) Hyponatremia (Chronic) Edema (Acute) Encounter for pre-operative examination Toribio esophagus Dyspnea on exertion Low serum parathyroid hormone (PTH) Dysphagia HTN (hypertension) (Chronic) Hyperlipidemia (Chronic) CAD (coronary artery disease) (Chronic) Vitamin D deficiency (Chronic) Schatzki's ring (Chronic) Long QT syndrome (Chronic) Hepatic steatosis (Chronic) Gastroesophageal reflux disease (Chronic) Esophageal varices (Chronic) PT DENIES BANDING Benign prostatic hyperplasia with urinary obstruction (Chronic) Medical History Arthritis Hx of gout Surgical History H/O colonoscopy with polypectomy S/P CABG x 2 (2007) History of tooth extraction History of arthroscopy of right knee History of esophagogastroduodenoscopy (EGD) History of cardiac cath (~2007) Family History Sister Diabetes Brother Hypertension Stroke Diabetes Mother Breast cancer Father , 78 Coronary heart disease Other No family history of adverse response to anesthesia Denies family history of Ovarian cancer Prostate cancer Myocardial infarction Colorectal cancer Social History Smoking Status: Never smoker Second Hand Exposure: No; Do You Dip or Chew Tobacco: Yes (STILL USES "EVERY ONCE IN A WHILE, NOT DAILY">ADVISED); Hx Alcohol Use: Yes Alcohol type: beer Alcohol Intake Frequency: 4 or More x per/Week Alcohol Intake Frequency Comment: 3-4 beers/day Hx Substance Use: No Preferred Language: Bulgarian Communication Ability: Effective Visual Impairment: No Limitations Hearing Ability: Normal 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 Required: No Beliefs That Will Affect Care: None marital status: Current Living Situation: Spouse current occupational status: retired How many Children do You have: 1 Feels Safe at Home: Yes Safety Concerns: Feels Safe At This Time Childhood Exposure to Second-Hand Smoke: No Diet: regular Diet Comment: regular caffeine: No during the past year weight has: remained stable Dental Care, Regularly: Yes Physical Activity Frequency: Daily Seatbelt Use: always Sunscreen Use: Yes Assistive Devices: Glasses Allergies Allergies Allergy/AdvReac Type Severity Reaction Status Date / Time azithromycin AdvReac Intermediate QT Verified 05/25/24 09:38 Prolongation hydrochlorothiazide AdvReac Intermediate hyponatremi Verified 05/25/24 09:38 a Home Meds Home Medications Medication Instructions Recorded Confirmed aspirin 81 mg tablet,delayed 81 mg PO QAM 11/22/18 05/28/24 release multivitamin 1 tab PO QAM 02/28/19 05/28/24 ascorbic acid (vitamin C) 1,000 mg 1,000 mg PO QAM 12/05/19 05/28/24 tablet (Vitamin C) ferrous sulfate 325 mg (65 mg 325 mg PO .3 x week 05/06/24 05/28/24 iron) tablet potassium 1 tab PO DAILY 05/06/24 05/28/24 furosemide 40 mg tablet 40 mg PO UD 05/28/24 05/28/24 metoprolol succinate 50 mg 50 mg PO UD 05/28/24 05/28/24 tablet,extended release 24 hr Previous Rx's Medication Instructions Recorded indomethacin 50 mg capsule 50 mg PO TID PRN Gout #30 caps 05/13/21 fluocinonide 0.05 % topical cream 1 applic topical BID PRN Rash #60 09/02/22 grams compr.stocking,knee,long,large #12 ea 05/21/23 atorvastatin 80 mg tablet 80 mg PO QAM #90 tabs 06/16/23 omeprazole 40 mg capsule,delayed 40 mg PO QAM #90 caps 02/04/24 release ammonium lactate 12 % topical cream 1 applic topical DAILY PRN dry 04/15/24 skin #385 grams tadalafil 5 mg tablet 20 mg (4 x 5 mg) PO ONCE PRN 04/29/24 sexual activity #30 tabs folic acid 1 mg tablet 1 mg PO QAM #30 tabs 05/04/24 spironolactone 50 mg tablet 50 mg PO DAILY #30 tabs 05/04/24 thiamine HCl (vitamin B1) 100 mg 100 mg PO DAILY #0 tabs 05/04/24 tablet lisinopril 20 mg tablet 20 mg PO QAM #90 tabs 05/25/24 sildenafil (pulm.hypertension) 20 100 mg (5 x 20 mg) PO ONCE PRN 05/25/24 mg tablet sexual activity #30 tabs tamsulosin 0.4 mg capsule 0.4 mg PO DAILY #30 caps 05/25/24 Results & Data (ED) Vital Signs Vital Signs - 24 hr 05/28/24 10:47 05/28/24 11:05 05/28/24 12:00 Temperature 36.4 C L Temperature Source Temporal Artery Scan Pulse Rate 88 Pulse Rate [Apical] 84 Respiratory Rate 18 18 Respiratory Effort / Characteristics Non-Labored Spontaneous Respiratory Depth Normal Blood Pressure 97/61 L Blood Pressure [Right Arm] 111/68 Blood Pressure Mean 73 Blood Pressure Mean [Right Arm] 82 Blood Pressure Position [Right Arm] Sitting Pulse Oximetry 100 98 Oxygen Delivery Method Room Air Room Air Room Air Sepsis New/Unexplained Change in Mental Status No Sepsis Action Taken by Nursing No Action Required 05/28/24 12:07 Temperature Temperature Source Pulse Rate 80 Pulse Rate [Apical] Respiratory Rate Respiratory Effort / Characteristics Respiratory Depth Blood Pressure Blood Pressure [Right Arm] Blood Pressure Mean Blood Pressure Mean [Right Arm] Blood Pressure Position [Right Arm] Pulse Oximetry Oxygen Delivery Method Sepsis New/Unexplained Change in Mental Status Sepsis Action Taken by Nursing Laboratory Data 05/28/24 11:15 05/28/24 11:15 Lab Results 05/28/24 05/28/24 Range/Units 11:15 11:43 WBC 5.38 (4.8-10.8) K/ul RBC 4.02 L (4.70-6.10) M/uL Hgb 12.3 L (14.0-18.0) g/dl Hct 35.9 L (42.0-52.0) % MCV 89.3 (80.0-100.0) fL MCH 30.6 (25.0-34.0) pg MCHC 34.3 (32.0-36.0) g/dL RDW Std Deviation 44.3 (36.4-46.3) fL RDW Coeff of Luisa 13.5 (11.5-14.5) % Plt Count 147 (130-400) K/uL MPV 10.4 (9.4-12.4) fL Immature Gran % (Auto) 0.4 % Neut % (Auto) 67.1 % Lymph % (Auto) 16.9 % Andrews % (Auto) 13.0 % Eos % (Auto) 1.9 % Baso % (Auto) 0.7 % Neut # (Auto) 3.61 (1.40-6.50) K/uL Lymph # (Auto) 0.91 L (1.20-3.40) K/uL Andrews # (Auto) 0.70 H (0.11-0.59) K/uL Eos # (Auto) 0.10 (0.00-0.50) K/uL Baso # (Auto) 0.04 (0.00-0.20) K/uL Immature Gran # (Auto) 0.02 (0.01-0.20) K/uL Sodium 136 (136-145) mmol/L Potassium 4.2 (3.5-5.1) mmol/L Chloride 104 (98-107) mmol/L Carbon Dioxide 22 (21-32) mmol/L Anion Gap 10 (3-11) BUN 32 H (6-23) mg/dl Creatinine 1.40 D (0.6-1.4) mg/dl Est Cr Clr Drug Dosing Not Reportable eGFR 53.07 BUN/Creatinine Ratio 22.9 H (10-20) Glucose 113 H (70-99(Fasting)) mg/dl Calcium 10.3 (8.6-10.3) mg/dl Magnesium 1.7 (1.7-2.4) mg/dl Total Bilirubin 1.1 H (0.2-1.0) mg/dl AST 32 (13-39) U/L ALT 28 (7-52) U/L Alkaline Phosphatase 98 (34-104) U/L Troponin I High Sens 15.0 D (0-20) pg/ml B-Natriuretic Peptide 212 H (0-100) pg/ml Total Protein 7.5 (6.0-8.3) gm/dl Albumin 4.3 (3.4-5.0) gm/dl Globulin 3.2 (2.5-4.0) gm/dl Albumin/Globulin Ratio 1.3 (0.9-2) TSH 1.215 (0.300-4.500) uIu/ml Imaging Data Radiologist's Impression: Ankle X-Ray 05/28/24 11:06 XR ankle RT min 3V routine HISTORY: 73 years-old Male right ankle pain, fall acute right ankle pain status post fall COMPARISON: None TECHNIQUE: 3 views of the right ankle FINDINGS: There is an acute obliquely oriented distal fibular fracture with fracture extension to the level of the distal tibiofibular syndesmosis. 6 cm lateral displacement. And widening of the distal tibia fibular syndesmosis. The lateral clear space measures 8 mm. Subtle acute medial malleolar fracture. No significant displacement. Pes planus with midfoot collapse which appears chronic. Moderate diffuse soft tissue swelling. IMPRESSION: 1. Acute bimalleolar ankle fracture with pathologic widening of the tibial- fibular syndesmosis and lateral clear space. 2. Pes planus with mid foot collapse which appears chronic. ACT 112: Negative or not required by law. The above report was generated using voice recognition software. It may contain grammatical, syntax or spelling errors. Electronically signed by: Marcello Rivera M.D. 05/28/2024 12:09 PM Chest X-Ray 05/28/24 11:06 XR chest 1V portable HISTORY: 73 years-old Male CHF congestive heart failure COMPARISON: 05/26/2024 TECHNIQUE: AP view the chest FINDINGS: Cardiac silhouette is enlarged. Median sternotomy. No pneumothorax, pleural effusion or airspace consolidation. Bones of the chest appear grossly intact. IMPRESSION: Cardiomegaly without acute process. ACT 112: Negative or not required by law. The above report was generated using voice recognition software. It may contain grammatical, syntax or spelling errors. Electronically signed by: Marcello Rivera M.D. 05/28/2024 12:07 PM Discharge Plan Visit Data Chief Complaint: Syncope (Near Syncope) Stated Complaint: FAINTED LAST NIGHT, SPRAINED RT ANKLE, DIZZY ED Provider: Shonda Ortega Discharge Problem: Bimalleolar fracture of right ankle, Syncope, Adverse effect of antihypertensive Patient Disposition: Admitted As Inpatient Discharge Instructions Interventions: ED Discharge Assessment Last Done: 05/28/24 15:24
--- NOTE | 2024-05-28 13:08 | History & Physical Report ---
Date of Service May 28, 2024 Assessment & Plan (1) Syncope and collapse: Plan: Recurrent episodes of syncope and collapse that first began on 05/26 Full LOC (patient believes for several seconds each time); no head strike No h/o prior syncope Fatigue and lightheadedness x 2 weeks Suspect this is secondary to orthostasis in the setting of recent medication changes: started on metoprolol, Lasix, and spironolactone for acute CHF in April 2024 Hold Lasix, spironolactone, and lisinopril for now Metoprolol 25 mg -->12.5 p.o. daily Continuous telemetry monitoring (2) Bimalleolar fracture of right ankle: Plan: Right ankle x-ray on arrival revealed an acute bimalleolar ankle fracture Splinted in the ED Orthopedic consult appreciated Acetaminophen and oxycodone p.o. as needed for pain control PT/OT evaluations appreciated (right non-weightbearing) (3) Orthostatic hypotension: Plan: 97/61 on arrival, but improved to 120/76 without medications or fluids Orthostatic vitals (+) on arrival: Lyin/75, HR 78 bpm Sittin/59, HR 88 bpm Standin/51, HR 93 bpm Per nursing, patient also reports that he felt lightheaded when standing during orthostatics Fall precautions (4) CHF (congestive heart failure): Plan: Clinically, patient appears euvolemic on exam Last echocardiogram on 05/03/2024 revealed LVEF at 50-55% Heart healthy diet Daily weights Strict I&O monitoring (5) MUNA (acute kidney injury): Plan: Mild; improving from 05/26 Avoid nephrotoxic agents where possible Encourage p.o. fluid intake in the setting of national IVF shortage (6) CAD (coronary artery disease): Plan: Continue aspirin, atorvastatin Plan Disposition: Admit to MedSurg telemetry Full code Heart healthy diet VTE PPx: High fall risk, will defer chemical DVT PPx on arrival; dinesh application to left leg History of Present Illness Chief Complaint: Syncope Primary Care Provider: REJI Kolb Gene is a 73-year-old male with PMH of CAD, HTN, HLD, long QT syndrome, GERD, BPH, RONNIE, and alcoholic liver cirrhosis. He presented on 05/28 for recurrent syncopal episodes. Patient reports he had recent hospitalization for CHF in April, and was discharged on new medications (metoprolol, Lasix, and spironolactone). He reports that he has been feeling lightheaded and weak at home over the past couple weeks. He then experienced 2 syncopal episodes on 05/26. Patient reports that he came in after cleaning snow off his car, sat down on the couch, then went to the kitchen and woke up on the floor. He was feeling lightheaded just prior to falling. Full LOC. He did not strike his head. Although details are fuzzy, he reports that he was in the kitchen and then next thing he knew he was on the floor for several seconds he believes. He drank some water, reports he felt better, and went out to visit a friend at a [employer]. He then experienced a second syncopal episode when he collapsed at the counter. He was helped up by 2 gentleman and given water and told to go to the emergency department. At the emergency department on , he was told to hold his metoprolol and Lasix, and then resume them at half-strength. However, there may have been some confusion with this. He does report that he cut his metoprolol to 25 mg daily, but reports he is still taking Lasix as prescribed. He does measure his blood pressure at home, and reports it has been okay over the past 2 weeks (around 130/70 on most days), however recently it has been as low as 90s systolic. This morning on 05/28, he woke up around 3 AM to use the restroom, and syncopized. He was feeling lightheaded while walking. Full LOC. He believes he landed on his ankle. No head strike. Unwitnessed. At that time, he reported 9/10 right ankle pain. The pain stays in his right ankle; no radiation or shooting pain up the leg. He did not take any pain medicine prior to coming in. He characterized it as a throbbing pain, that is worse when he bears weight on it. Patient reports he did take all of his regular morning medicines today. He manages his own medications at home. He does not ambulate with a cane or a walker at baseline. No supplemental oxygen or CPAP at night. No sick contacts. Ongoing dyspnea on exertion, which patient believes is secondary to his heart failure. No prior history of strokes, and patient denies any strokelike symptoms (slurred speech, facial droop, or unilateral deficits) in the setting of syncopal episodes. No history of seizures, and patient denies any seizure-like activity (such as jerking, tongue biting, loss of urinary continence) during syncopal episodes. Patient denies smoking or tobacco use. No recent alcohol use within the past several days. Patient's vitals are stable at time of admission. ED course: ROS: Patient endorses lightheadedness, fatigue, syncope, falls, ANDREWS, and numbness/pain in the right ankle. Patient denies fever, chills, night-sweats, dizziness like the room is spinning, headache, slurred speech, facial droop, chest pain, SOB at rest, cough, chest pressure, abdominal pain, N/V/D, changes in urinary/bowel habits, blood in urine/stool, or tingling in the right ankle. Allergies Allergy/AdvReac Type Severity Reaction Status Date / Time azithromycin AdvReac Intermediate QT Verified 05/25/24 09:38 Prolongation hydrochlorothiazide AdvReac Intermediate hyponatremi Verified 05/25/24 09:38 a Home Medications Medication Instructions Recorded Confirmed Type aspirin 81 mg tablet,delayed 81 mg PO QAM 11/22/18 05/28/24 History release multivitamin 1 tab PO QAM 02/28/19 05/28/24 History ascorbic acid (vitamin C) 1,000 mg 1,000 mg PO QAM 12/05/19 05/28/24 History tablet (Vitamin C) indomethacin 50 mg capsule 50 mg PO TID PRN Gout #30 caps 05/13/21 05/28/24 Rx fluocinonide 0.05 % topical cream 1 applic topical BID PRN Rash #60 09/02/22 05/28/24 Rx grams compr.stocking,knee,long,large #12 ea 05/21/23 05/25/24 Rx atorvastatin 80 mg tablet 80 mg PO QAM #90 tabs 06/16/23 05/28/24 Rx omeprazole 40 mg capsule,delayed 40 mg PO QAM #90 caps 02/04/24 05/28/24 Rx release ammonium lactate 12 % topical cream 1 applic topical DAILY PRN dry 04/15/24 05/28/24 Rx skin #385 grams tadalafil 5 mg tablet 20 mg (4 x 5 mg) PO ONCE PRN 04/29/24 05/28/24 Rx sexual activity #30 tabs folic acid 1 mg tablet 1 mg PO QAM #30 tabs 05/04/24 05/28/24 Rx spironolactone 50 mg tablet 50 mg PO DAILY #30 tabs 05/04/24 05/28/24 Rx thiamine HCl (vitamin B1) 100 mg 100 mg PO DAILY #0 tabs 05/04/24 05/28/24 Rx tablet ferrous sulfate 325 mg (65 mg 325 mg PO .3 x week 05/06/24 05/28/24 History iron) tablet potassium 1 tab PO DAILY 05/06/24 05/28/24 History lisinopril 20 mg tablet 20 mg PO QAM #90 tabs 05/25/24 05/28/24 Rx sildenafil (pulm.hypertension) 20 100 mg (5 x 20 mg) PO ONCE PRN 05/25/24 05/28/24 Rx mg tablet sexual activity #30 tabs tamsulosin 0.4 mg capsule 0.4 mg PO DAILY #30 caps 05/25/24 05/28/24 Rx furosemide 40 mg tablet 40 mg PO UD 05/28/24 05/28/24 History metoprolol succinate 50 mg 50 mg PO UD 05/28/24 05/28/24 History tablet,extended release 24 hr Past Med/Surg History Problem List (Updated 05/28/24 @ 14:21 by Sukumar Coley PA-C) MUNA (acute kidney injury) Orthostatic hypotension Bimalleolar fracture of right ankle CHF (congestive heart failure) Syncope and collapse Episodic lightheadedness (Acute) Hypotension (Acute) Mediastinal lymphadenopathy Pancytopenia Liver cirrhosis, alcoholic Iron deficiency anemia Dyslipidemia (Chronic) Elevated PSA (Acute) Erectile dysfunction (Acute) Hyperglycemia Smokeless tobacco use (Chronic) Anemia (Chronic) Hyponatremia (Chronic) Edema (Acute) Encounter for pre-operative examination Toribio esophagus Dyspnea on exertion Low serum parathyroid hormone (PTH) Dysphagia HTN (hypertension) (Chronic) Hyperlipidemia (Chronic) CAD (coronary artery disease) (Chronic) Vitamin D deficiency (Chronic) Schatzki's ring (Chronic) Long QT syndrome (Chronic) Hepatic steatosis (Chronic) Gastroesophageal reflux disease (Chronic) Esophageal varices (Chronic) PT DENIES BANDING Benign prostatic hyperplasia with urinary obstruction (Chronic) Medical History Arthritis Hx of gout Surgical History H/O colonoscopy with polypectomy S/P CABG x 2 (2007) History of tooth extraction History of arthroscopy of right knee History of esophagogastroduodenoscopy (EGD) History of cardiac cath (~2007) Family History Sister Diabetes Brother Hypertension Stroke Diabetes Mother Breast cancer Father , 78 Coronary heart disease Other No family history of adverse response to anesthesia Denies family history of Ovarian cancer Prostate cancer Myocardial infarction Colorectal cancer Social History Smoking Status: Never smoker Second Hand Exposure: No; Do You Dip or Chew Tobacco: Yes (STILL USES "EVERY ONCE IN A WHILE, NOT DA JANELLE">ADVISED); Hx Alcohol Use: Yes Alcohol type: beer Alcohol Intake Frequency: 4 or More x per/Week Alcohol Intake Frequency Comment: 3-4 beers/day Hx Substance Use: No Preferred Language: Armenian Communication Ability: Effective Visual Impairment: No Limitations Hearing Ability: Normal Guest Services Attendant Required: No Beliefs That Will Affect Care: None marital status: Current Living Situation: Spouse current occupational status: retired How many Children do You have: 1 Feels Safe at Home: Yes Childhood Exposure to Second-Hand Smoke: No Diet: regular Diet Comment: regular caffeine: No during the past year weight has: remained stable Dental Care, Regularly: Yes Physical Activity Frequency: Daily Seatbelt Use: always Sunscreen Use: Yes Assistive Devices: Glasses Review of Systems Review of Systems: See HPI above Physical Exam Physical Exam: General: no acute distress; pleasant affect; non-toxic appearing; well- nourished; cooperative; SpO2 at 99% on RA HEENT: normocephalic, atraumatic; no scleral icterus; PERRLA; vision and hearing intact Neck: supple; no lymphadenopathy; trachea midline Skin: warm, dry without signs of tenting; no cyanosis; no rashes, bruising, lesions, or erythema noted CV: chest wall NTP; RRR; S1/S2 normal; no murmurs/rubs/gallops; pulses intact and symmetric at radial, DP, and PT Lungs: no acute respiratory distress; symmetrical chest wall expansion; clear breath sounds across all lung soto w/o adventitious sounds; no wheezing ABD: Soft, NTP; BS present; no rebound/guarding; no distention MSK: no tics or fasciculations; no edema noted in the LEs b/l, nonerythematous; patient demonstrates ability to wiggle toes bilaterally Neuro: A&Ox3; normal mood and affect; fluent speech; no focal deficits; patient reports that sensation is intact and symmetric in the lower extremities bilaterally assessed via light touch at the toes and knees Results & Data Results & Data Vital Signs (Past 12 Hours) Vital Signs Temp Pulse Pulse Resp BP BP Pulse Ox 05/28/24 12:07 80 05/28/24 12:00 84 18 111/68 98 05/28/24 11:05 05/28/24 10:47 36.4 C L 88 18 97/61 L 100 O2 Del Method 05/28/24 12:07 05/28/24 12:00 Room Air 05/28/24 11:05 Room Air 05/28/24 10:47 Room Air Laboratory Results Abnormal lab results 05/28/24 05/28/24 Range/Units 11:15 11:43 RBC 4.02 L (4.70-6.10) M/uL Hgb 12.3 L (14.0-18.0) g/dl Hct 35.9 L (42.0-52.0) % Lymph # (Auto) 0.91 L (1.20-3.40) K/uL [place] # (Auto) 0.70 H (0.11-0.59) K/uL BUN 32 H (6-23) mg/dl BUN/Creatinine Ratio 22.9 H (10-20) Glucose 113 H (70-99(Fasting)) mg/dl Total Bilirubin 1.1 H (0.2-1.0) mg/dl B-Natriuretic Peptide 212 H (0-100) pg/ml Diagnostic Findings Ankle X-Ray 05/28/24 11:06 XR ankle RT min 3V routine HISTORY: 73 years-old Male right ankle pain, fall acute right ankle pain status post fall COMPARISON: None TECHNIQUE: 3 views of the right ankle FINDINGS: There is an acute obliquely oriented distal fibular fracture with fracture extension to the level of the distal tibiofibular syndesmosis. 6 cm lateral displacement. And widening of the distal tibia fibular syndesmosis. The lateral clear space measures 8 mm. Subtle acute medial malleolar fracture. No signifi cant displacement. Pes planus with midfoot collapse which appears chronic. Moderate diffuse soft tissue swelling. IMPRESSION: 1. Acute bimalleolar ankle fracture with pathologic widening of the tibial- fibular syndesmosis and lateral clear space. 2. Pes planus with mid foot collapse which appears chronic. ACT 112: Negative or not required by law. The above report was generated using voice recognition software. It may contain grammatical, syntax or spelling errors. Electronically signed by: Marcello Rivera M.D. 05/28/2024 12:09 PM Chest X-Ray 05/28/24 11:06 XR chest 1V portable HISTORY: 73 years-old Male CHF congestive heart failure COMPARISON: 05/26/2024 TECHNIQUE: AP view the chest FINDINGS: Cardiac silhouette is enlarged. Median sternotomy. No pneumothorax, pleural effusion or airspace consolidation. Bones of the chest appear grossly intact. IMPRESSION: Cardiomegaly without acute process. ACT 112: Negative or not required by law. The above report was generated using voice recognition software. It may contain grammatical, syntax or spelling errors. Electronically signed by: Marcello Rivera M.D. 05/28/2024 12:07 PM ECG Additional Comments: ECG revealed sinus rhythm with PACs at 75 bpm; QTc 473; similar prior but notable T wave inversions in the anteroseptal leads which may indicate ischemia Code Status & VTE Plan Code Status Full code VTE Prophylaxis Plan VTE Prophylaxis will be ordered: Yes Supervising Physician Co-Signing Physician Notes Patient seen and examined, chart reviewed, case discussed with Sukumar Coley PA-C and I agree with the assessment and plan as above except as otherwise noted Labs and images reviewed 73-year-old male with a past medical history of CHF with 2 weeks of lightheadedness and weakness worsened on standing with an episode of syncope after standing had a prodrome of lightheadedness and with no incontinence or head injury. Had a second episode of syncope on / Metoprolol was h eld, lasix was held. Had another episode of syncope when walking to the bathroom this morning. EKG iRBBB, t wave in inferior and anterioseptal leads unchanged from prior. CTA in April did not show evidence of PE. Patient is volume contracted appearing with a improving MUNA compared to 05/26, but still with above baseline creatinine. Ratio contracted. Suspect given patient's worsening symptoms on standing, improving but unresolved MUNA, and prodromal symptoms that this is orthostatic. Metoprolol's has been decreased by half. Continue hydration. Lisinopril/spironolactone held. Continue oral hydration. Orthostatic vitals are positive. No incontinence or postictal state suggestive of seizure, and no sudden syncope suggestive of neurogenic/arrhythmogenic syncope. Agree with above. PG Care Time/CCT Total # of Minutes Spent Total Time Spent with Patient: Total time spent is greater than 50% in coordination of care (as documented) at patient's floor/unit and/or counseling patient: C[place] [address] INT INP/OBS CARE 3/75MIN Patient Type Established Medical Decision Making High Complexity Diagnoses Syncope and collapse R55 Bimalleolar fracture of right ankle S82.841A Orthostatic hypotension I95.1 CHF (congestive heart failure) I50.9 MUNA (acute kidney injury) N17.9 Coronary artery disease involving autologous vein coronary bypass graft without angina pectoris I25.810 Associated angina: without angina Coronary Disease-Associated Artery/Lesion type: bypass graft, autologous vein (6) CAD (coronary artery disease) Associated angina: without angina Coronary Disease-Associated Artery/Lesion type: bypass graft, autologous vein Qualified Code(s): I25.810 - Atherosclerosis of coronary artery bypass graft(s) without angina pectoris
[2024-05-28 13:54] LABS: Appearance Urine Clear (Clear); Bilirubin Urine Negative (Negative); Blood Urine Negative (Negative); Color Urine Yellow; Glucose Urine UA Negative (Negative); Ketones Urine Negative (Negative); Leukocyte Esterase Urine Negative (Negative); Nitrite Urine Negative (Negative); Protein Urine Negative (Negative); Specific Gravity Urine 1.008 (1.000-1.030); Urobilinogen Urine Negative (Negative); pH Urine 5.5 (4.5-7.5)
[2024-05-28] MEDS ORDERED: ONDANSETRON INJ 2 MG/ML 2 ML VIAL IV PRN (15:51)
[2024-05-28] MEDS ORDERED: oxyCODONE HCL IR 5 MG TAB (IMMEDIATE RELEASE) PO PRN (15:51)
[2024-05-28] MEDS: SODIUM CHLORIDE 0.9% 1,000 ML IV SCH (21:30)
--- NOTE | 2024-05-28 23:57 | Orthopedic Consultation ---
Date of Service May 28, 2024 Assessment & Plan (1) Bimalleolar fracture of right ankle: We discussed diagnosis and treatment options at bedside. I recommended open reduction internal fixation of the right ankle. He understands the risk, benefits, and alternatives to procedures like to proceed. Questions were answered at bedside. Time was spent scribing the procedure and postop expectations. The decision was made for surgery. He will be n.p.o. past midnight tonight. History of Present Illness Reason for Consultation: Right distal fibula fracture. Requesting Physician: . Attending Physician: Stanley Coleman MD Eusebio is a pleasant 73-year-old male who lost consciousness earlier today. He does not recall falling. When he woke up he was having significant right ankle pain. He came to the emergency room and radiographs demonstrated a displaced right distal fibular fracture with possible syndesmotic injury. He was admitted to the hospitalist service. Orthopedics was consulted to evaluate and treat.. Allergies Allergy/AdvReac Type Severity Reaction Status Date / Time azithromycin AdvReac Intermediate QT Verified 05/25/24 09:38 Prolongation hydrochlorothiazide AdvReac Intermediate hyponatremi Verified 05/25/24 09:38 a Home Medications Medication Instructions Recorded Confirmed Type aspirin 81 mg tablet,delayed 81 mg PO QAM 11/22/18 05/28/24 History release multivitamin 1 tab PO QAM 02/28/19 05/28/24 History ascorbic acid (vitamin C) 1,000 mg 1,000 mg PO QAM 12/05/19 05/28/24 History tablet (Vitamin C) indomethacin 50 mg capsule 50 mg PO TID PRN Gout #30 caps 05/13/21 05/28/24 Rx fluocinonide 0.05 % topical cream 1 applic topical BID PRN Rash #60 09/02/22 05/28/24 Rx grams compr.stocking,knee,long,large #12 ea 05/21/23 05/25/24 Rx atorvastatin 80 mg tablet 80 mg PO QAM #90 tabs 06/16/23 05/28/24 Rx omeprazole 40 mg capsule,delayed 40 mg PO QAM #90 caps 02/04/24 05/28/24 Rx release ammonium lactate 12 % topical cream 1 applic topical DAILY PRN dry 04/15/24 05/28/24 Rx skin #385 grams tadalafil 5 mg tablet 20 mg (4 x 5 mg) PO ONCE PRN 04/29/24 05/28/24 Rx sexual activity #30 tabs folic acid 1 mg tablet 1 mg PO QAM #30 tabs 05/04/24 05/28/24 Rx spironolactone 50 mg tablet 50 mg PO DAILY #30 tabs 05/04/24 05/28/24 Rx thiamine HCl (vitamin B1) 100 mg 100 mg PO DAILY #0 tabs 05/04/24 05/28/24 Rx tablet ferrous sulfate 325 mg (65 mg 325 mg PO .3 x week 05/06/24 05/28/24 History iron) tablet potassium 1 tab PO DAILY 05/06/24 05/28/24 History lisinopril 20 mg tablet 20 mg PO QAM #90 tabs 05/25/24 05/28/24 Rx sildenafil (pulm.hypertension) 20 100 mg (5 x 20 mg) PO ONCE PRN 05/25/24 05/28/24 Rx mg tablet sexual activity #30 tabs tamsulosin 0.4 mg capsule 0.4 mg PO DAILY #30 caps 05/25/24 05/28/24 Rx furosemide 40 mg tablet 40 mg PO UD 05/28/24 05/28/24 History metoprolol succinate 50 mg 50 mg PO UD 05/28/24 05/28/24 History tablet,extended release 24 hr Past Med/Surg History Problem List Adverse effect of antihypertensive (Acute) Syncope (Acute) Bimalleolar fracture of right ankle (Acute) MUNA (acute kidney injury) Orthostatic hypotension Bimalleolar fracture of right ankle CHF (congestive heart failure) Syncope and collapse Episodic lightheadedness (Acute) Hypotension (Acute) Mediastinal lymphadenopathy Pancytopenia Liver cirrhosis, alcoholic Iron deficiency anemia Dyslipidemia (Chronic) Elevated PSA (Acute) Erectile dysfunction (Acute) Hyperglycemia Smokeless tobacco use (Chronic) Anemia (Chronic) Hyponatremia (Chronic) Edema (Acute) Encounter for pre-operative examination Toribio esophagus Dyspnea on exertion Low serum parathyroid hormone (PTH) Dysphagia HTN (hypertension) (Chronic) Hyperlipidemia (Chronic) CAD (coronary artery disease) (Chronic) Vitamin D deficiency (Chronic) Schatzki's ring (Chronic) Long QT syndrome (Chronic) Hepatic steatosis (Chronic) Gastroesophageal reflux disease (Chronic) Esophageal varices (Chronic) PT DENIES BANDING Benign prostatic hyperplasia with urinary obstruction (Chronic) Medical History Arthritis Hx of gout Surgical History H/O colonoscopy with polypectomy 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, Saphenous vein graft to Ramus ([facility]) 2008 History of tooth extraction History of arthroscopy of right knee History of esophagogastroduodenoscopy (EGD) History of cardiac cath (~2007) 2008 - ABN STRESS TEST - [facility] --> CABG Family History Sister Diabetes Brother Hypertension Stroke Diabetes Mother Breast cancer Father , 78 Coronary heart disease Other No family history of adverse response to anesthesia Denies family history of Ovarian cancer Prostate cancer Myocardial infarction Colorectal cancer Social History Smoking Status: Never smoker Second Hand Exposure: No; Do You Dip or Chew Tobacco: Yes (STILL USES "EVERY ONCE IN A WHILE, NOT DAILY">ADVISED); Hx Alcohol Use: Yes Alcohol type: beer Alcohol Intake Frequency: 4 or More x per/Week Alcohol Intake Frequency Comment: 3-4 beers/day Hx Substance Use: No Preferred Language: Paraguayan Communication Ability: Effective Visual Impairment: No Limitations Hearing Ability: Normal Traveling Secretary Required: No Beliefs That Will Affect Care: None marital status: Current Living Situation: Spouse current occupational status: retired How many Children do You have: 1 Feels Safe at Home: Yes Safety Concerns: Feels Safe At This Time Childhood Exposure to Second-Hand Smoke: No Diet: regular Diet Comment: regular caffeine: No during the past year weight has: remained stable Dental Care, Regularly: Yes Physical Activity Frequency: Daily Seatbelt Use: always Sunscreen Use: Yes Assistive Devices: Glasses Review of Systems All systems reviewed & are unremarkable except as noted in HPI & below. Physical Exam On physical exam of the right ankle, there is a trauma splint placed. His ankle is externally rotated. He has active motion of his toes.. Constitutional WD/WN, vitals as above Eyes PERRL, conjunctivae normal, anicteric sclerae ENMT external ear and nose normal, oropharynx normal Neck trachea midline, no thyromegaly Respiratory normal respiratory effort Cardiovascular RRR, no murmur, no edema Gastrointestinal (Abdomen) normal bowel sounds, soft, nontender, no hepatosplenomegaly Psychiatric A+Ox3, euthymic affect Results & Data Results & Data Laboratory Results . Diagnostic Findings X-rays of the right ankle do show a displaced right fibular fracture with an apparent syndesmotic injury as well.. PG Care Time/CCT Total # of Minutes Spent Total Time Spent with Patient: Total time spent is greater than 50% in coordination of care (as documented) at patient's floor/unit and/or counseling patient: Coding Level of Care Code 16492 IN/OBS CONSULT LVL 4,60M (57 - DECISION FOR SURGERY) Diagnoses Bimalleolar fracture of right ankle S82.841A
[2024-05-29 06:40] LABS: Basophils # (auto) 0.02 K/uL (0.00-0.20); Basophils % (auto) 0.5 %; Eosinophils # (auto) 0.13 K/uL (0.00-0.50); Eosinophils % (auto) 3.6 %; Hematocrit (blood only) 30.2 % (42.0-52.0); Hemoglobin 10.2 g/dl (14.0-18.0); Immature Granulocytes # (auto) 0.02 K/uL (0.01-0.20); Immature Granulocytes % (auto) 0.5 %; Lymphocytes % (auto) 24.7 %; Mean Corpuscular Hemoglobin 30.2 pg (25.0-34.0); Mean Corpuscular Hgb Conc 33.8 g/dL (32.0-36.0); Mean Corpuscular Volume 89.3 fL (80.0-100.0); Mean Platelet Volume 10.6 fL (9.4-12.4); Monocytes # (auto) 0.67 K/uL (0.11-0.59); Monocytes % (auto) 18.4 %; Neutrophils % (auto) 52.3 %; Platelet Count 104 K/uL (130-400); RDW Coefficient of Variation 13.7 % (11.5-14.5); RDW Standard Deviation 44.8 fL (36.4-46.3); Red Blood Count 3.38 M/uL (4.70-6.10); White Blood Count 3.64 K/ul (4.8-10.8)
[2024-05-29 06:59] LABS: BUN Creatinine Ratio 28.9 (10-20); Calcium 8.6 mg/dl (8.6-10.3); Creatinine Clr Calc Pharmacy 63.3 ml/min
[2024-05-29] MEDS: METOPROLOL SUCC 25MG EXT REL TAB PO SCH ×2 (08:13→13:32)
[2024-05-29] MEDS: ASPIRIN 81 MG ECTAB PO SCH (08:13)
[2024-05-29] MEDS: ATORVASTATIN 40 MG TAB PO SCH (08:14)
[2024-05-29] MEDS: PANTOprazole 40 MG TAB PO SCH (08:14)
[2024-05-29] MEDS: TAMSULOSIN HCL 0.4 MG CAP PO SCH (08:14)
[2024-05-29] MEDS: FOLIC ACID 1 MG TAB PO SCH (08:14)
[2024-05-29] MEDS ORDERED: NEOSTIGMINE METHYLSULFATE 1 MG/ML 10ML VIAL ONE (10:09)
[2024-05-29] MEDS ORDERED: GLYCOPYRROLATE 0.2 MG/ML VIAL ONE (10:09)
[2024-05-29] MEDS ORDERED: fentaNYL citrate PF 100 MCG/2 ML VIAL ONE (10:09)
[2024-05-29] MEDS ORDERED: DEXAMETHASONE SOD INJ 4 MG/ML VIAL ONE (10:09)
[2024-05-29] MEDS ORDERED: LIDOCAINE 2% 2 ML VIAL/AMP(20MG/ML) INFIL ONE (10:09)
[2024-05-29] MEDS ORDERED: PROPOFOL IV EMULSION 10 MG/ML 20 ML VIAL IV ONE (10:09)
[2024-05-29] MEDS ORDERED: ROCURONIUM BROMIDE 10 MG/ML 5 ML VIAL IV ONE (10:09)
[2024-05-29] MEDS ORDERED: MIDAZOLAM HCL 1 MG/ML 2ML VIAL ONE (10:09)
[2024-05-29] MEDS ORDERED: ONDANSETRON INJ 2 MG/ML 2 ML VIAL ONE (10:09)
[2024-05-29] MEDS ORDERED: BUPIVACAINE/EPINEPHRINE 0.25% 1:200,000 30 ML VIAL ONE (10:10)
[2024-05-29] MEDS ORDERED: BUPIVACAINE 0.5 % 5 MG/1 ML PF 10ML VIAL ONE (10:11)
[2024-05-29] MEDS ORDERED: ePHEDrine sulfate 50 MG/ML AMP IV PRN (10:16)
[2024-05-29] MEDS ORDERED: ONDANSETRON INJ 2 MG/ML 2 ML VIAL IV PRN (10:16)
[2024-05-29] MEDS ORDERED: fentaNYL citrate PF 100 MCG/2 ML VIAL IV PRN (10:16)
[2024-05-29] MEDS ORDERED: HYDROmorphone INJ 1 MG/ML SYRINGE IV PRN (10:16)
[2024-05-29] MEDS ORDERED: ATROPINE SULFATE 0.1 MG/ML 10ML SYR IV PRN (10:16)
--- NOTE | 2024-05-29 10:18 | History & Physical Bridge Note ---
Date of Service May 29, 2024 History & Physical Bridge Note I have examined the patient, reviewed the History & Physical and in the interval since the performance of the History & Physical I have noted the following changes of clinical significance: no changes noted
--- NOTE | 2024-05-29 10:27 | Anesthesiology Consultation ---
Date of Service May 29, 2024 Assessment & Plan ASA ASA3 Proposed Anesthesia Anesthesia Type: General Regional Regional Laterality: Right Site: Popliteal and Adductor Canal Risk / Benefits Reviewed With: PT / POA / Parent / Guardian, Accepts Plan and Informed Consent Obtained Additional Comments: per patient at his dry weight History Surgery Operation Date: 05/29/24 10:00 Proposed Procedures p Open Reduction Internal Fixation Ankle(Right) - Joel Harris, Height/Weight Height: 6 ft Weight: 90.4 kg Allergies Allergy/AdvReac Type Severity Reaction Status Date / Time azithromycin AdvReac Intermediate QT Verified 05/25/24 09:38 Prolongation hydrochlorothiazide AdvReac Intermediate hyponatremi Verified 05/25/24 09:38 a Medications Home Medications Medication Instructions Recorded Confirmed Last Taken aspirin 81 mg tablet,delayed 81 mg PO QAM 11/22/18 05/28/24 09/08/22 release multivitamin 1 tab PO QAM 02/28/19 05/28/24 09/08/22 ascorbic acid (vitamin C) 1,000 mg 1,000 mg PO QAM 12/05/19 05/28/24 09/08/22 tablet (Vitamin C) indomethacin 50 mg capsule 50 mg PO TID PRN Gout #30 caps 05/13/21 05/28/24 Unknown fluocinonide 0.05 % topical cream 1 applic topical BID PRN Rash #60 09/02/22 05/28/24 09/05/22 grams compr.stocking,knee,long,large #12 ea 05/21/23 05/25/24 Unknown atorvastatin 80 mg tablet 80 mg PO QAM #90 tabs 06/16/23 05/28/24 Unknown omeprazole 40 mg capsule,delayed 40 mg PO QAM #90 caps 02/04/24 05/28/24 Unknown release ammonium lactate 12 % topical cream 1 applic topical DAILY PRN dry 04/15/24 05/28/24 Unknown skin #385 grams tadalafil 5 mg tablet 20 mg (4 x 5 mg) PO ONCE PRN 04/29/24 05/28/24 Unknown sexual activity #30 tabs folic acid 1 mg tablet 1 mg PO QAM #30 tabs 05/04/24 05/28/24 Unknown spironolactone 50 mg tablet 50 mg PO DAILY #30 tabs 05/04/24 05/28/24 Unknown thiamine HCl (vitamin B1) 100 mg 100 mg PO DAILY #0 tabs 05/04/24 05/28/24 Unknown tablet ferrous sulfate 325 mg (65 mg 325 mg PO .3 x week 05/06/24 05/28/24 Unknown iron) tablet potassium 1 tab PO DAILY 05/06/24 05/28/24 Unknown lisinopril 20 mg tablet 20 mg PO QAM #90 tabs 05/25/24 05/28/24 Unknown sildenafil (pulm.hypertension) 20 100 mg (5 x 20 mg) PO ONCE PRN 05/25/24 05/28/24 Unknown mg tablet sexual activity #30 tabs tamsulosin 0.4 mg capsule 0.4 mg PO DAILY #30 caps 05/25/24 05/28/24 Unknown furosemide 40 mg tablet 40 mg PO UD 05/28/24 05/28/24 Unknown metoprolol succinate 50 mg 50 mg PO UD 05/28/24 05/28/24 Unknown tablet,extended release 24 hr Active Medications Generic Name Dose Route Start Last Admin Trade Name Kimmy PRN Reason Stop Dose Admin Aspirin 81 mg 05/29/24 09:00 05/29/24 08:13 Aspirin 81 Mg Ectab PO 06/28/24 08:59 81 mg QAM JOSÉ MIGUEL Administration Atorvastatin Calcium 80 mg 05/29/24 09:00 05/29/24 08:14 Atorvastatin 40 Mg Tab PO 06/28/24 08:59 80 mg QAM JOSÉ MIUGEL Administration Folic Acid 1 mg 05/29/24 09:00 05/29/24 08:14 Folic Acid 1 Mg Tab PO 06/28/24 08:59 1 mg QAM JOSÉ MIGUEL Administration Metoprolol Succinate 12.5 mg 05/29/24 09:00 05/29/24 08:13 Metoprolol Succ 25mg Ext Rel Tab PO 06/28/24 08:59 12.5 mg QAM JOSÉ MIGUEL Administration Pantoprazole Sodium 40 mg 05/29/24 09:00 05/29/24 08:14 Pantoprazole 40 Mg Tab PO 06/28/24 08:59 40 mg QAM JOSÉ MIGUEL Administration Tamsulosin HCl 0.4 mg 05/29/24 09:00 05/29/24 08:14 Tamsulosin Hcl 0.4 Mg Cap PO 06/28/24 08:59 0.4 mg DAILY JOSÉ MIGUEL Administration Past Medical History Medical History Arthritis Hx of gout Exercise / Class Metabolic Activity II 4-5 Yardwork/Stairs/Walk up hill Past Family History Family History Sister Diabetes Brother Hypertension Stroke Diabetes Mother Breast cancer Father , 78 Coronary heart disease Other No family history of adverse response to anesthesia Denies family history of Ovarian cancer Prostate cancer Myocardial infarction Colorectal cancer Past Surgical History Surgical History H/O colonoscopy with polypectomy 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, Saphenous vein graft to Ramus ([facility]) 2007 History of tooth extraction History of arthroscopy of right knee History of esophagogastroduodenoscopy (EGD) History of cardiac cath (~2007) 2008 - ABN STRESS TEST - [facility] --> CABG Past Anesthesia History No Hx of Anesthesia Complications and No Family Hx of Anesthesia Complications History of PONV No Hx of PONV and No Hx of Motion Sickness Social History Smoking Status: Never smoker tobacco type: smokeless tobacco Do You Dip or Chew Tobacco: Yes (STILL USES "EVERY ONCE IN A WHILE, NOT DAILY">ADVISED) Hx Alcohol Use: Yes Alcohol type: beer alcohol intake frequency: a few times a week Hx Substance Use: No substance use type: does not use Review of Systems denies fever/cough/ colds/ chest pain/ SOB/ TATUM denies TATUM Physical Exam Vital Signs Last Vital Signs Temp 36.8 C 05/29/24 07:38 Pulse 63 05/29/24 07:38 Resp 16 05/29/24 07:38 BP 113/63 05/29/24 07:38 Pulse Ox 94 05/29/24 07:38 O2 Del Method Room Air 05/29/24 07:38 ENMT Mouth: + dentures (perment partial); no TMJ abnormality and no dentition abnormality Thyromental Distance: > or= 3.5 Finger Breadths Mallampati Class: II Neck neck extension not limited Respiratory normal respiratory effort; no respiratory distress Auscultation: lungs clear to auscultation bilaterally Cardiovascular Rate/Rhythm: regular rate and regular rhythm Neurologic moves all extremities Psychiatric Orientation: alert and oriented x 3 Testing Laboratory Results 05/29/24 05:47 05/29/24 05:47 Urine Color Yellow 05/28/24 13:41 Urine Appearance Clear (Clear) 05/28/24 13:41 Urine pH 5.5 (4.5-7.5) 05/28/24 13:41 Ur Specific [place] 1.008 (1.000-1.030) 05/28/24 13:41 Urine Protein Negative (Negative) 05/28/24 13:41 Urine Glucose (UA) Negative (Negative) 05/28/24 13:41 Urine Ketones Negative (Negative) 05/28/24 13:41 Urine Nitrite Negative (Negative) 05/28/24 13:41 Ur Leukocyte Esterase Negative (Negative) 05/28/24 13:41
[2024-05-29] MEDS: ceFAZolin 2000MG 2,000 MG/15 ML SYR IV ONE (10:37)
[2024-05-29] MEDS ORDERED: ePHEDrine sulfate 50 MG/ML AMP ONE (10:40)
[2024-05-29] MEDS ORDERED: VASOPRESSIN 20 UNIT/ML VIAL ONE (10:51)
[2024-05-29] MEDS ORDERED: ceFAZolin 330 MG/ML 1 GM VIAL ONE ×2 (10:52)
[2024-05-29] MEDS: BUPIVACAINE/EPINEPHRINE 0.5% MPF 1:200,000 30 ML VIAL ONE (11:36)
--- NOTE | 2024-05-29 11:45 | Fluoroscopy Report ---
FL ankle RT min 3V RTN CLINICAL HISTORY: RT ANKLE ORIFacute fracture of the right ankle COMPARISON STUDY: Radiograph 05/28/2024 FLUOROSCOPY TIME: 30.4 seconds FLUOROSCOPY IMAGES: 3 EXPOSURE DOSE: 1.30 mGy FINDINGS: Status post plate and screw fusion of the acute distal fibular fracture with satisfactory a lignment. IMPRESSION: Fluoroscopic assistance as above. ACT 112: Negative or not required by law. Electronically signed by: Marcello Rivera M.D. 05/29/2024 11:43 AM
--- NOTE | 2024-05-29 11:52 | Operative Report ---
PG Post Operative Report Pre & Post Diagnosis Operation Date: 05/29/24 10:00 Pre-Op Diagnosis: Right distal fibula fracture Post-Op Diagnosis: Right distal fibula fracture I identified the patient and participated in the time-out.: Yes Procedure Operation Date: 05/29/24 10:00 Actual Procedures p Open Reduction Internal Fixation right distal fibula - Joel Harris DO Surgeon Joel Harris DO [employer] None Estimated Blood Loss 10 Findings Consistent with Post-Op Diagnosis Specimens None Description of Procedure On May 29, 2024 Robert was brought down from the hospital room to the preoperative holding area. The operative extremity identified and signed. Is given a preoperative antibiotic and a regional block. He was then taken back to the operating room and transferred to the operating table. He was put under general anesthesia. The right ankle was then prepped and draped sterile fashion. A timeout was done. The patient and the operative extremity was properly identified. Longitudinal incision was made over the distal fibula. Dissection was taken out through the fascia. The fracture was then exposed. Time was taken to clean out the fracture site. The fracture was then irrigated with a liter normal saline solution by pulse lavage. The fracture was then reduced with a reduction clamp. Fluoroscopic images showed near anatomic alignment of the fracture. The ankle mortise was well-maintained. A single 4.0 mm lag screw was placed. The clamp was then removed. A Synthes 7 hole distal fibular locking plate was then placed. A single locking screw was placed distally and a compression screw was placed more proximal. This held the plate to the bone. Fluoroscopic images showed good alignment of the plate in anatomic alignment of the fracture and the ankle mortise. The remaining of the locking screws were then placed. The cortical screw was replaced with a single locking screw. Final fluoroscopic images showed good alignment. The surgical site was then irrigated. The deep layer was closed with #1 Vicryl. Skin was closed with 2-0 Vicryl and danny. He was then placed in a trauma splint. He was then extubated and transferred to a hospital bed. He was taken to the postanesthesia care unit in stable condition. He tolerated the procedure well. I attest to the content of the Intraoperative Record and any orders documented therein. Any exceptions are noted below.
--- NOTE | 2024-05-29 12:30 | Anesthesiology Progress Note ---
Date of Service May 29, 2024 Anesthesia Post Procedure Vital Signs Vital Signs: Temp Pulse Pulse Resp BP BP BP 05/29/24 12:20 77 15 96/47 L 05/29/24 12:10 81 21 80/49 L 05/29/24 12:00 82 17 98/49 L 05/29/24 11:52 36.1 C L 75 17 108/49 L 05/29/24 07:38 36.8 C 63 16 113/63 05/29/24 06:08 69 05/29/24 03:50 36.8 C 68 18 99/53 L 05/28/24 23:48 96/58 L 05/28/24 23:46 84/42 L 05/28/24 23:45 36.8 C 16 91/53 L 05/28/24 21:51 94 H 05/28/24 21:22 122 H 05/28/24 20:08 116 H 05/28/24 19:59 36.6 C 73 18 104/57 L 05/28/24 16:28 86 05/28/24 15:57 36.8 C 74 18 127/71 05/28/24 15:24 81 18 115/71 05/28/24 14:00 82 18 120/76 Pulse Ox O2 Del Method 05/29/24 12:20 98 Room Air 05/29/24 12:10 94 Room Air 05/29/24 12:00 96 Room Air 05/29/24 11:52 98 Room Air 05/29/24 07:38 94 Room Air 05/29/24 06:08 05/29/24 03:50 96 Room Air 05/28/24 23:48 05/28/24 23:46 05/28/24 23:45 94 Room Air 05/28/24 21:51 05/28/24 21:22 05/28/24 20:08 05/28/24 19:59 96 Room Air 05/28/24 16:28 05/28/24 15:57 99 Room Air 05/28/24 15:24 97 Room Air 05/28/24 14:00 99 Room Air Transfer of Care Handoff Completed per policy Notes Mental Status: alert / awake / arousable and participated in evaluation Patient Amnestic to Procedure: Yes Nausea / Vomiting: adequately controlled Pain: adequately controlled Airway Patency, RR, SpO2: stable & adequate BP & HR: stable & adequate Hydration State: stable & adequate Anesthetic Complications: no major complications apparent and Pt Satisfied with anesthetic care
[2024-05-29] MEDS ORDERED: NALOXONE HCL 0.4 MG/1 ML VIAL/CARP IV PRN (12:50)
[2024-05-29] MEDS ORDERED: METOCLOPRAMIDE HCL INJ 5 MG/ML 2 ML VIAL IV PRN (12:50)
[2024-05-29] MEDS ORDERED: INDOMETHACIN 25 MG CAP PO PRN (12:50)
[2024-05-29] MEDS ORDERED: NON-FORMULARY MEDICATION (Tadalafil 5 mg tablet) PO PRN (12:50)
[2024-05-29] MEDS ORDERED: SILDENAFIL CITRATE 20 MG TABLET PO PRN (12:50)
[2024-05-29] MEDS ORDERED: bisacodyL 10 MG SUPP PR PRN (12:50)
[2024-05-29] MEDS ORDERED: MAGNESIUM HYDROXIDE SUSP 30 ML UDC PO PRN (12:50)
[2024-05-29] MEDS ORDERED: BETAMETHASONE VAL 0.1% CR 15 GM TOP PRN (12:50)
[2024-05-29] MEDS: FUROSEMIDE 20 MG TAB PO SCH ×2 (13:25→13:32)
--- NOTE | 2024-05-29 14:33 | Hospitalist Progress Note ---
Date of Service May 29, 2024 Assessment & Plan (1) Syncope and collapse: Plan: Presented after recurrent episodes of syncope and collapse that first began on 05/26, with acute right ankle pain. Reports fatigue and lightheadedness x 2 weeks - Suspect syncope secondary to orthostasis in setting of recent medication changes for CHF where he was started on metoprolol, Lasix, and spironolactone in April 2024 - Reduced metoprolol to 12.5 mg daily - Hold Lasix, spironolactone, and lisinopril for now - Continuous telemetry monitoring (2) Bimalleolar fracture of right ankle: Plan: Acute right ankle pain that began after syncopal episode at home - Right ankle x-ray on arrival revealed an acute bimalleolar ankle fracture - Orthopedic surgery consulted - S/p ORIF Right ankle with Dr. Harris on 05/29 > Review of operative report lists EBL 10 cc, no complications noted - Eliquis 2.5 mg BID resumed by ortho - Acetaminophen and oxycodone p.o. as needed for pain control - PT/OT evaluations appreciated (right non-weightbearing) (3) Orthostatic hypotension: Plan: Orthostatic vitals (+) on arrival - Suspect due to recent CHF medication changes as listed above - Fall precautions (4) CHF (congestive heart failure): Plan: Clinically, patient appears euvolemic on exam - Last echocardiogram on 05/03/2024 revealed LVEF at 50-55% - Daily weights - dry weight ~190 lb - Strict I&O monitoring - CHF regimen needs adjustments given syncope and collapse - Consider SGLT-2 - caution given cirrhosis, ongoing alcohol use, a new diuretic regimen -- will defer to PCP - Continue to follow-up with CHF clinic on discharge (5) MUNA (acute kidney injury): Plan: MUNA resolved from 05/26 - Suspect due to volume depletion - Avoid nephrotoxic agents where possible - Encourage p.o. fluid intake in the setting of national IVF shortage (6) Liver cirrhosis, alcoholic: Plan: Evidence of cirrhosis on CTA chest with small amount of ascites noted last admission - RUQ US suggestive of cirrhosis - Patient previously drinking approximately 6 pack beer/day. Has decreased alcohol intake since last hospitalization - Monitor for signs of alcohol withdrawal - Recommend hepatitis A and B vaccines - Avoid hepatotoxic agents where possible Plan Chronic stable issues: CAD: Continue aspirin, atorvastatin Pancytopenia: Continue to monitor. May be related to alcohol use/cirrhosis Toribio's esophagus: Continue PPI VTE PPx: Eliquis CODE STATUS: Full code Admission and Anticipated Discharge Date Admission Date: May 28, 2024 Subjective Patient seen and evaluated at bedside after returning from the OR. He reports feeling well postop. He denies any headache, lightheadedness, shortness of breath, chest pain, nausea, abdominal pain. He reports passing gas since surgery. He had lunch and tolerated this well. He states since his last hospitalization he has reduced his alcohol intake and has only had a few beers while at [employer] with his buddies. No additional complaints or concerns at this time. Physical Exam Physical Exam: General: No acute distress, nondiaphoretic, well-developed, well-nourished. Skin: Warm, dry. No rashes or erythema noted. Cardiac: Regular rate and rhythm without murmurs gallops or rubs. Pulm: Clear to auscultation bilaterally without wheezes, rales or rhonchi. No respiratory distress. 94% on room air. Abdominal: Soft, nontender, nondistended. Bowel sounds present. Neuro: A&O x3. No focal neurological deficits. Extremities: Right lower extremity in splint. Capillary refill <3 seconds. Results & Data Results & Data Vital Signs (Past 12 Hours) Vital Signs Temp Pulse Pulse Resp BP BP Pulse Ox 05/29/24 13:50 97.2 F L 87 16 107/63 94 05/29/24 13:20 97.5 F L 80 16 93/57 L 94 05/29/24 12:50 97.9 F 83 16 96/57 L 95 05/29/24 12:30 98.1 F 78 17 97/49 L 92 05/29/24 12:20 77 15 96/47 L 98 05/29/24 12:10 81 21 80/49 L 94 05/29/24 12:00 82 17 98/49 L 96 05/29/24 11:52 97.0 F L 75 17 108/49 L 98 05/29/24 07:38 98.2 F 63 16 113/63 94 05/29/24 06:08 69 05/29/24 03:50 98.2 F 68 18 99/53 L 96 O2 Del Method 12/08/24 13:50 Room Air 05/29/24 13:20 Room Air 05/29/24 12:50 Room Air 05/29/24 12:30 Room Air 05/29/24 12:20 Room Air 05/29/24 12:10 Room Air 05/29/24 12:00 Room Air 05/29/24 11:52 Room Air 05/29/24 07:38 Room Air 05/29/24 06:08 05/29/24 03:50 Room Air Laboratory Results Reviewed CBC Reviewed BMP Diagnostic Findings Reviewed Ankle X-Ray 05/29/24 00:00 FL ankle RT min 3V RTN CLINICAL HISTORY: RT ANKLE ORIFacute fracture of the right ankle COMPARISON STUDY: Radiograph 05/28/2024 FLUOROSCOPY TIME: 30.4 seconds FLUOROSCOPY IMAGES: 3 EXPOSURE DOSE: 1.30 mGy FINDINGS: Status post plate and screw fusion of the acute distal fibular fracture with satisfactory alignment. IMPRESSION: Fluoroscopic assistance as above. ACT 112: Negative or not required by law. Electronically signed by: Marcello Rivera M.D. 05/29/2024 11:43 AM PG Care Time/CCT Total # of Minutes Spent Total Time Spent with Patient: Total time spent is greater than 50% in coordination of care (as documented) at patient's floor/unit and/or counseling patient: Coding Level of Care Code 77409 SUB INP/OBS CARE 2/35MIN Diagnoses Syncope and collapse R55 Bimalleolar fracture of right ankle S82.841A Orthostatic hypotension I95.1 CHF (congestive heart failure) I50.9 MUNA (acute kidney injury) N17.9 Liver cirrhosis, alcoholic K70.30
[2024-05-29] MEDS: KETOROLAC TROMETHAMINE 15 MG/ML VIAL IV SCH (14:35)
[2024-05-29] MEDS: ceFAZolin 2000MG 2,000 MG/15 ML SYR IV SCH (18:02)
[2024-05-29] MEDS: DOCUSATE SODIUM 100 MG CAP PO SCH (20:13)
[2024-05-29] MEDS: SENNA 8.6 MG TAB PO SCH (20:13)
[2024-05-29] MEDS: APIXABAN 2.5 MG TAB PO SCH (20:13)
--- NOTE | 2024-05-30 07:56 | Hospitalist Progress Note ---
Date of Service May 30, 2024 Assessment & Plan (1) Syncope and collapse: Plan: Presented after recurrent episodes of syncope and collapse that first began on 05/26, with acute right ankle pain. Reports fatigue and lightheadedness x 2 weeks - Suspect syncope secondary to orthostasis in setting of recent medication changes for CHF where he was started on metoprolol, Lasix, and spironolactone in April 2024 - Reduced metoprolol to 12.5 mg daily - Hold Lasix, spironolactone, and lisinopril for now - CHF regimen needs adjustments on discharge given syncope and collapse - Blood pressures much improved - Continuous telemetry monitoring -- NSR 70-80s (2) Bimalleolar fracture of right ankle: Plan: Acute right ankle pain that began after syncopal episode at home - Right ankle x-ray on arrival revealed an acute bimalleolar ankle fracture - Orthopedic surgery consulted - S/p ORIF Right ankle with Dr. Harris on 05/29 > Review of operative report lists EBL 10 cc, no complications noted - Eliquis 2.5 mg BID resumed by ortho - Defer pain control regimen to ortho - PT/OT evaluations appreciated (right non-weightbearing) (3) Orthostatic hypotension: Plan: Orthostatic vitals (+) on arrival - Suspect due to recent CHF medication changes as listed above - Fall precautions (4) CHF (congestive heart failure): Plan: Clinically, patient appears euvolemic on exam - Last echocardiogram on 05/03/2024 revealed LVEF at 50-55% - Daily weights - dry weight ~190 lb - Strict I&O monitoring - Consider SGLT-2 - caution given cirrhosis, ongoing alcohol use, a new diuretic regimen -- will defer to PCP - Continue to follow-up with CHF clinic on discharge (5) MUNA (acute kidney injury): Plan: MUNA resolved from 05/26 - Suspect due to volume depletion - Avoid nephrotoxic agents where possible - Encourage p.o. fluid intake in the setting of national IVF shortage (6) Liver cirrhosis, alcoholic: Plan: Evidence of cirrhosis on CTA chest with small amount of ascites noted last admission - RUQ US suggestive of cirrhosis - Patient previously drinking approximately 6 pack beer/day. Has decreased alcohol intake since last hospitalization - Monitor for signs of alcohol withdrawal - Recommend hepatitis A and B vaccines - Avoid hepatotoxic agents where possible Plan Updated at bedside Reviewed telemetry Chronic stable issues: CAD: Continue aspirin, atorvastatin Pancytopenia: Continue to monitor. May be related to alcohol use/cirrhosis Toribio's esophagus: Continue PPI VTE PPx: Eliquis CODE STATUS: Full code Admission and Anticipated Discharge Date Admission Date: May 28, 2024 Subjective Patient seen and evaluated at bedside with present. He reports feeling well. States his right ankle pain is well-controlled with medication. He denies dizziness or lightheadedness like he experienced prior to coming to the hospital. He has passed gas and had multiple bowel movements. He is well- tolerating his diet and sleeping well at night. He denies any complaints or concerns at this time. had multiple questions regarding his HF medication regimen; all questions addressed/answered. expresses concern that patient has not been seen by a physician since admission. Informed that patient's case is discussed with my attending daily and he is also being followed by the orthopedic physician. Offered patient to be seen by my physician today, which both patient and his declined. Will put him on one of the physicians service starting tomorrow. Physical Exam Physical Exam: General: No acute distress, nondiaphoretic, well-developed, well-nourished. Skin: Warm, dry. No rashes or erythema noted. No edema noted. Cardiac: Regular rate and rhythm without murmurs gallops or rubs. Pulm: Clear to auscultation bilaterally without wheezes, rales or rhonchi. No respiratory distress. 98% on room air. Abdominal: Soft, nontender, nondistended. Bowel sounds present. Neuro: A&O x3. No focal neurological deficits. Extremities: Right lower extremity in splint. Capillary refill <3 seconds. Results & Data Results & Data Vital Signs (Past 12 Hours) Vital Signs Temp Pulse Pulse Pulse Resp BP Pulse Ox 05/30/24 07:44 99.7 F H 79 18 128/73 96 05/30/24 07:43 80 05/30/24 04:00 97.9 F 86 18 117/66 99 05/29/24 23:30 97.7 F 82 18 107/57 L 96 05/29/24 21:43 93 H O2 Del Method 05/30/24 07:44 Room Air 05/30/24 07:43 05/30/24 04:00 Room Air 05/29/24 23:30 Room Air 12/08/24 21:43 Laboratory Results Reviewed CBC Reviewed BMP PG Care Time/CCT Total # of Minutes Spent Total Time Spent with Patient: Total time spent is greater than 50% in coordination of care (as documented) at patient's floor/unit and/or counseling patient: Coding Level of Care Code 95548 SUB INP/OBS CARE 3/50MIN Diagnoses Syncope and collapse R55 Bimalleolar fracture of right ankle S82.841A Orthostatic hypotension I95.1 CHF (congestive heart failure) I50.9 MUNA (acute kidney injury) N17.9 Liver cirrhosis, alcoholic K70.30
[2024-05-30 08:17] LABS: BUN Creatinine Ratio 25.4 (10-20); Calcium 8.4 mg/dl (8.6-10.3); Creatinine Clr Calc Pharmacy 57.3 ml/min; Potassium 3.9 mmol/L (3.5-5.1)
[2024-05-30 08:23] LABS: Hematocrit (blood only) 28.1 % (42.0-52.0); Hemoglobin 9.5 g/dl (14.0-18.0); Mean Corpuscular Hemoglobin 30.2 pg (25.0-34.0); Mean Corpuscular Hgb Conc 33.8 g/dL (32.0-36.0); Mean Corpuscular Volume 89.2 fL (80.0-100.0); Mean Platelet Volume 10.2 fL (9.4-12.4); Platelet Count 87 K/uL (130-400); RDW Standard Deviation 45.4 fL (36.4-46.3); Red Blood Count 3.15 M/uL (4.70-6.10); White Blood Count 4.94 K/ul (4.8-10.8)
[2024-05-30 08:28] LABS: Basophils # (auto) 0.02 K/uL (0.00-0.20); Basophils % (auto) 0.4 %; Immature Granulocytes # (auto) 0.02 K/uL (0.01-0.20); Immature Granulocytes % (auto) 0.4 %; Lymphocytes % (auto) 16.2 %; Monocytes # (auto) 0.92 K/uL (0.11-0.59); Monocytes % (auto) 18.6 %; Neutrophils # (auto) 3.08 K/uL (1.40-6.50); Neutrophils % (auto) 62.4 %
[2024-05-30] MEDS ORDERED: SPIRONOLACTONE 25 MG TAB PO SCH (09:00)
[2024-05-30] MEDS ORDERED: lisinopril 20 MG TAB PO SCH (09:00)
[2024-05-30] MEDS ORDERED: NON-FORMULARY MEDICATION (Potassium 1 TAB) PO SCH (09:00)
[2024-05-30] MEDS ORDERED: NON-FORMULARY MEDICATION (Multivitamin tablet) PO SCH (09:00)
[2024-05-30] MEDS: dexAMETHasone 4 MG TAB PO SCH (09:08)
[2024-05-30] MEDS: FERROUS SULFATE 325 MG TAB PO SCH (09:08)
[2024-05-30] MEDS: MULTIVITAMIN TAB PO SCH (09:08)
[2024-05-30] MEDS: THIAMINE HCL 100 MG TAB PO SCH (09:09)
--- NOTE | 2024-05-30 20:21 | Orthopedic Progress Note ---
Date of Service May 30, 2024 Assessment & Plan (1) Bimalleolar fracture of right ankle: Overall he is doing fairly well. He is not having much pain in his right ankle. He is orthopedically stable for discharge when medically ready. He is to be nonweightbearing on his right ankle for about 6 weeks. He is supposed to take Eliquis 2.5 mg twice a day for 6 weeks to help prevent blood clots. He can follow-up in our office in 2 weeks. Full orthopedic discharge instructions were placed in the discharge summary. Subjective Gene was seen and examined at bedside this morning. Overall he is doing fairly well. He is not having much pain in the right ankle. He has no new complaints.. Review of Systems All systems reviewed & are unremarkable except as noted in HPI & below. Physical Exam A physical exam with the right ankle, the trauma splint is in place. He has active motion of his toes.. Results & Data Results & Data Laboratory Results . Diagnostic Findings . PG Care Time/CCT Total # of Minutes Spent Total Time Spent with Patient: Total time spent is greater than 50% in coordination of care (as documented) at patient's floor/unit and/or counseling patient: Coding Level of Care Code 48599 Post Operative Follow-Up Diagnoses Bimalleolar fracture of right ankle S82.841A
[2024-05-31 07:15] LABS: Basophils # (auto) 0.01 K/uL (0.00-0.20); Basophils % (auto) 0.2 %; Hematocrit (blood only) 27.4 % (42.0-52.0); Hemoglobin 9.4 g/dl (14.0-18.0); Immature Granulocytes # (auto) 0.04 K/uL (0.01-0.20); Immature Granulocytes % (auto) 0.6 %; Lymphocytes # (auto) 0.42 K/uL (1.20-3.40); Lymphocytes % (auto) 6.5 %; Mean Corpuscular Hemoglobin 30.1 pg (25.0-34.0); Mean Corpuscular Hgb Conc 34.3 g/dL (32.0-36.0); Mean Corpuscular Volume 87.8 fL (80.0-100.0); Mean Platelet Volume 10.4 fL (9.4-12.4); Monocytes # (auto) 0.55 K/uL (0.11-0.59); Monocytes % (auto) 8.5 %; Neutrophils # (auto) 5.45 K/uL (1.40-6.50); Neutrophils % (auto) 84.2 %; Platelet Count 88 K/uL (130-400); RDW Coefficient of Variation 13.5 % (11.5-14.5); RDW Standard Deviation 43.1 fL (36.4-46.3); Red Blood Count 3.12 M/uL (4.70-6.10); White Blood Count 6.47 K/ul (4.8-10.8)
[2024-05-31 07:28] LABS: Calcium 9.1 mg/dl (8.6-10.3); Potassium 4.3 mmol/L (3.5-5.1)
[2024-05-31 07:34] LABS: BUN Creatinine Ratio 31.5 (10-20); Creatinine Clr Calc Pharmacy 66.9 ml/min
--- NOTE | 2024-05-31 07:50 | Hospitalist Progress Note ---
Date of Service May 31, 2024 Assessment & Plan (1) Syncope and collapse: Plan: Presented after recurrent episodes of syncope and collapse that first began on 05/26, with acute right ankle pain, and fracture with repair. Reports fatigue and lightheadedness x 2 weeks - Suspect syncope secondary to orthostasis in setting of recent medication changes for CHF where he was started on metoprolol, Lasix, and spironolactone in April 2024 Last echocardiogram on 05/03/2024 revealed LVEF at 50-55% - HFpEF Reduced metoprolol to 12.5 mg daily - Hold Lasix, spironolactone, and lisinopril cesarley will not restart at discharge - Blood pressures much improved (2) Bimalleolar fracture of right ankle: Plan: Acute right ankle bimalleolar fracture after syncopal episode at home - Orthopedic surgery consulted - S/p ORIF Right ankle with Dr. Harris on 05/29 > Review of operative report lists EBL 10 cc, no complications noted - Eliquis 2.5 mg BID resumed by ortho - PT/OT evaluations appreciated (right non-weightbearing), home with home health recommendation (3) Orthostatic hypotension: Plan: Orthostatic vitals (+) on arrival - Suspect due to recent CHF medication changes as listed above - Fall precautions (4) MUNA (acute kidney injury): Plan: MUNA resolved from 05/26 . CKD3 - Suspect due to volume depletion - Avoid nephrotoxic agents where possible - Encourage p.o. fluid intake in the setting of national IVF shortage (5) Liver cirrhosis, alcoholic: Plan: Evidence of cirrhosis on CTA chest with small amount of ascites noted last admission - RUQ US suggestive of cirrhosis - Patient previously drinking approximately 6 pack beer/day. Has decreased alcohol intake since last hospitalization - no signs of alcohol withdrawal - Recommend hepatitis A and B vaccines in future - Avoid hepatotoxic agents where possible Plan Chronic stable issues: CAD: Continue aspirin, atorvastatin Pancytopenia: Continue to monitor. May be related to alcohol use/cirrhosis Toribio's esophagus: Continue PPI VTE PPx: Eliquis CODE STATUS: Full code Admission and Anticipated Discharge Date Admission Date: May 28, 2024 Subjective pt was seen in room, he is non weight bearing of right foot due to recent surgery, now has been feeling less lightheaded wants to go home, PT feels home health services will be needed Physical Exam Physical Exam: Pt is without distress right foot with splint and wrap, will need outpt ortho follow up cardiac exam is regular lungs are clear Results & Data Results & Data Vital Signs (Past 12 Hours) Vital Signs Temp Pulse Pulse Resp BP Pulse Ox O2 Del Method 05/31/24 07:00 66 05/31/24 04:00 97.7 F 67 18 145/69 H 98 Room Air 05/31/24 00:18 97.9 F 75 18 148/68 H 96 Room Air 05/30/24 23:35 98.1 F 61 18 139/72 98 Room Air 05/30/24 22:18 87 Laboratory Results reviewed cbc reviewed chemistry PG Care Time/CCT Total # of Minutes Spent Total Time Spent with Patient: Total time spent is greater than 50% in coordination of care (as documented) at patient's floor/unit and/or counseling patient: Coding Level of Care Code 82147 SUB INP/OBS CARE 3/50MIN Diagnoses Syncope and collapse R55 Bimalleolar fracture of right ankle S82.841A Orthostatic hypotension I95.1 MUNA (acute kidney injury) N17.9 Liver cirrhosis, alcoholic K70.30
[2024-05-31] MEDS: oxyCODONE HCL IR 5 MG TAB (IMMEDIATE RELEASE) PO PRN (11:45)
[2024-05-31] MEDS: ACETAMINOPHEN 325 MG TAB PO PRN (19:55)
--- NOTE | 2024-06-01 11:35 | Discharge Summary ---
Date of Service June 01, 2024 Admission HPI Per Admitting Provider Eusebio is a 73-year-old male with PMH of CAD, HTN, HLD, long QT syndrome, GERD, BPH, RONNIE, and alcoholic liver cirrhosis. He presented on 05/28 for recurrent syncopal episodes. Patient reports he had recent hospitalization for CHF in April, and was discharged on new medications (metoprolol, Lasix, and spironolactone). He reports that he has been feeling lightheaded and weak at home over the past couple weeks. He then experienced 2 syncopal episodes on 05/26. Patient reports that he came in after cleaning snow off his car, sat down on the couch, then went to the kitchen and woke up on the floor. He was feeling lightheaded just prior to falling. Full LOC. He did not strike his head. Although details are fuzzy, he reports that he was in the kitchen and then next thing he knew he was on the floor for several seconds he believes. He drank some water, reports he felt better, and went out to visit a friend at a [employer]. He then experienced a second syncopal episode when he collapsed at the counter. He was helped up by 2 gentleman and given water and told to go to the emergency department. At the emergency department on , he was told to hold his metoprolol and Lasix, and then resume them at half-strength. However, there may have been some confusion with this. He does report that he cut his metoprolol to 25 mg daily, but reports he is still taking Lasix as prescribed. He does measure his blood pressure at home, and reports it has been okay over the past 2 weeks (around 130/70 on most days), however recently it has been as low as 90s systolic. This morning on 05/28, he woke up around 3 AM to use the restroom, and syncopized. He was feeling lightheaded while walking. Full LOC. He believes he landed on his ankle. No head strike. Unwitnessed. At that time, he reported 9/10 right ankle pain. The pain stays in his right ankle; no radiation or shooting pain up the leg. He did not take any pain medicine prior to coming in. He characterized it as a throbbing pain, that is worse when he bears weight on it. Patient reports he did take all of his regular morning medicines today. He manages his own medications at home. He does not ambulate with a cane or a walker at baseline. No supplemental oxygen or CPAP at night. No sick contacts. Ongoing dyspnea on exertion, which patient believes is secondary to his heart failure. No prior history of strokes, and patient denies any strokelike symptoms (slurred speech, facial droop, or unilateral deficits) in the setting of syncopal episodes. No history of seizures, and patient denies any seizure-like activity (such as jerking, tongue biting, loss of urinary continence) during syncopal episodes. Patient denies smoking or tobacco use. No recent alcohol use within the past several days. Patient's vitals are stable at time of admission. ED course: ROS: Patient endorses lightheadedness, fatigue, syncope, falls, ANDREWS, and numbness/pain in the right ankle. Patient denies fever, chills, night-sweats, dizziness like the room is spinning, headache, slurred speech, facial droop, chest pain, SOB at rest, cough, chest pressure, abdominal pain, N/V/D, changes in urinary/bowel habits, blood in urine/stool, or tingling in the right ankle. Specialty Data Hospitalist Discharge diagnoses: 1. Syncope with fall d/t orthostasis 2. R ankle fx s/p ORIF Discharge PE: Vital Signs Temp Pulse Pulse Resp BP Pulse Ox O2 Del Method 06/01/24 08:01 36.8 C 66 18 133/74 98 Room Air 06/01/24 07:50 Room Air 06/01/24 07:00 62 06/01/24 02:36 36.6 C 69 16 117/58 L 95 Room Air 05/31/24 22:30 36.5 C 81 18 141/71 H 96 Room Air 05/31/24 21:55 76 05/31/24 20:03 36.5 C 73 18 126/67 97 Room Air 05/31/24 15:07 36.3 C L 93 H 18 127/68 95 Room Air 05/31/24 14:00 84 05/31/24 11:34 36.5 C 80 18 114/64 95 Room Air Intake and Output 05/31/24 06/01/24 06/01/24 22:59 06:59 14:59 Intake Total 350 / 970 100 / 970 240 / 240 Output Total 1 450 / 851 0 / 0 Balance 349 / 119 -350 / 119 240 / 240 Intake: Oral 350 / 970 100 / 970 240 / 240 Output: Urine 450 / 850 # Bowel Movements 1 / 1 0 / 0 Other: # Unmeasured Voids 1 0 Weight 93.2 kg GENERAL: 73 yo well nourished M. NAD. LUNGS: Clear to auscultation bilaterally w/o W/R/R. CARDIOVASCULAR: Regular rate and rhythm. ABDOMEN: Soft, non-tender and non-distended. No palpable masses. Bowel sounds normoactive x 4 quad. EXTREMITIES: RLE casted and wrapped. NV intact. LLE w/o edema, cyanosis, clubbing. Peripheral pulses +2/4. NEUROLOGIC: A&O x3. No focal neurological deficits. CN II-XII grossly intact. SKIN: Warm, dry, intact. No rashes or lesions. Discharge Data Consultations 05/28/24 13:58 Consult Orthopedic Surgery Routine 05/28/24 15:33 ED Decision to Admit Stat Procedures Performed Ankle X-Ray 05/28/24 11:06 XR ankle RT min 3V routine HISTORY: 73 years-old Male right ankle pain, fall acute right ankle pain status post fall COMPARISON: None TECHNIQUE: 3 views of the right ankle FINDINGS: There is an acute obliquely oriented distal fibular fracture with fracture extension to the level of the distal tibiofibular syndesmosis. 6 cm lateral displacement. And widening of the distal tibia fibular syndesmosis. The lateral clear space measures 8 mm. Subtle acute medial malleolar fracture. No significant displacement. Pes planus with midfoot collapse which appears chronic. Moderate diffuse soft tissue swelling. IMPRESSION: 1. Acute bimalleolar ankle fracture with pathologic widening of the tibial- fibular syndesmosis and lateral clear space. 2. Pes planus with mid foot collapse which appears chronic. ACT 112: Negative or not required by law. The above report was generated using voice recognition software. It may contain grammatical, syntax or spelling errors. Electronically signed by: Marcello Rivera M.D. 05/28/2024 12:09 PM Chest X-Ray 05/28/24 11:06 XR chest 1V portable HISTORY: 73 years-old Male CHF congestive heart failure COMPARISON: 05/26/2024 TECHNIQUE: AP view the chest FINDINGS: Cardiac silhouette is enlarged. Median sternotomy. No pneumothorax, pleural e ffusion or airspace consolidation. Bones of the chest appear grossly intact. IMPRESSION: Cardiomegaly without acute process. ACT 112: Negative or not required by law. The above report was generated using voice recognition software. It may contain grammatical, syntax or spelling errors. Electronically signed by: Marcello Rivera M.D. 05/28/2024 12:07 PM Ankle X-Ray 05/29/24 00:00 FL ankle RT min 3V RTN CLINICAL HISTORY: RT ANKLE ORIFacute fracture of the right ankle COMPARISON STUDY: Radiograph 05/28/2024 FLUOROSCOPY TIME: 30.4 seconds FLUOROSCOPY IMAGES: 3 EXPOSURE DOSE: 1.30 mGy FINDINGS: Status post plate and screw fusion of the acute distal fibular fracture with satisfactory alignment. IMPRESSION: Fluoroscopic assistance as above. ACT 112: Negative or not required by law. Electronically signed by: Marcello Rivera M.D. 05/29/2024 11:43 AM Operation Date: 05/29/24 10:00 Actual Procedures p Open Reduction Internal Fixation Ankle(Right) - Joel Harris DO Hospital Course (1) Syncope and collapse: Presented after recurrent episodes of syncope and collapse that first began on 05/26, with acute right ankle pain, and fracture with repair. Reports fatigue and lightheadedness x 2 weeks - Suspect syncope secondary to orthostasis in setting of recent medication changes for CHF where he was started on metoprolol, Lasix, and spironolactone in April 2024 Last echocardiogram on 05/03/2024 revealed LVEF at 50-55% - HFpEF Reduced metoprolol to 12.5 mg daily - Held Lasix, spironolactone, and lisinopril which will NOT be resumed at home - Blood pressures much improved - Requires f/u with HF clinic that he missed due to hospitalization - Counseled on warning signs including increased LE edema, cough, difficulty with shortness of breath with activity or laying flat and to notify order picker (2) Bimalleolar fracture of right ankle: Acute right ankle bimalleolar fracture after syncopal episode at home - Orthopedic surgery consulted - S/p ORIF Right ankle with Dr. Harris on 05/29 > Review of operative report lists EBL 10 cc, no complications noted - Eliquis 2.5 mg BID resumed by ortho x 6 weeks while NWB - PT/OT evaluations appreciated (right non-weightbearing), home with home health recommendation - to set up services with [facility] - Call Dr. Harris's office to set up follow up visit - Utilize Tylenol first line for pain, do not exceed 3g in 24 hours and Oxycodone for mod-severe pain, rx sent (3) Orthostatic hypotension: Orthostatic vitals (+) on arrival - Suspect due to recent CHF medication changes as listed above - Fall precautions - No c/o lightheadedness/dizziness, BP stable since meds adjusted (4) MUNA (acute kidney injury): MUNA resolved from 05/26 . CKD3 - MUNA felt to be secondary to hypovolemia in setting of diuretic use (5) Liver cirrhosis, alcoholic: Evidence of cirrhosis on CTA chest with small amount of ascites noted last admission - RUQ US suggestive of cirrhosis - Patient previously drinking approximately 6 pack beer/day. Has decreased alcohol intake since last hospitalization - no signs of alcohol withdrawal - Recommend hepatitis A and B vaccines in future - Avoid hepatotoxic agents where possible Plan Chronic stable issues: CAD: Continue aspirin, atorvastatin Pancytopenia: Continue to monitor. May be related to alcohol use/cirrhosis Toribio's esophagus: Continue PPI Patient is medically and hemodynamically stable for discharge home with care of home health services and his . Son to transport patient back home. He will need f/u with orthopedics and in HF clinic. Scripts sent for Oxy to pharmacy for pain and for Eliquis for DVT ppx. Will also send rx for reduced dose of Metoprolol. Other HF medications discontinued as outlined on med reconciliation. Call PCP to set up follow up [address] Harris to arrange for orthopedic follow up. Plan has been d/w Dr. Kim who is in agreement. Total time for discharge: 35 minutes Coding Level of Care Code 02171 INP/OBS DISCH >30 MIN Diagnoses Syncope and collapse R55 Bimalleolar fracture of right ankle S82.841A Orthostatic hypotension I95.1 MUNA (acute kidney injury) N17.9 Liver cirrhosis, alcoholic K70.30
[2024-06-01 11:41] VITALS: RESP 20
[2024-06-01 15:00] VITALS: TEMP 97.9; O2SAT 94
[2024-06-01 15:38] VITALS: BP 96/57; PULSE 86
== END 2024-06-01 16:00 | disposition home health service (06) | DRG 493 ==
LOC: ED 10:45 → 2N 13:40 → SUATTDRO 13:40 → 2N 15:24